=== PATIENT | female | born 1945 | race Caucasian/White ===

== ENCOUNTER → 2025-04-29 | Outpatient (CLI) | payer OTHER, SELFPAY ==
[2025-04-29 12:12] LABS: Hematocrit 40.1 % (37-47); Hemoglobin 13.6 g/dL (12.0-15.0); Mean Corp Hgb Conc 33.9 g/dL (32-36); Mean Corpuscular Volume 89.9 fL (81-99); Mean Platelet Vol. 11.1 fl (6.2-12.0); Platelet Count 193 K/mm3 (150-450); RBC Distribution Width CV 13.1 % (11.6-14.6); RBC Distribution Width SD 42.9 fl (35.1-43.9); Red Blood Count 4.46 M/mm3 (4.2-5.4); White Blood Count 5.4 K/mm3 (4.4-11.0)
[2025-04-29 12:57] LABS: AST(SGOT) 26 U/L (<=31); Alanine Aminotransfer ALT/SGPT 16 U/L (<=34); Albumin, Serum 4.5 g/dL (3.4-4.8); Alkaline Phosphatase 50 U/L (35-104); BUN 13 mg/dL (4-19); BUN/Creat Ratio 16.8 RATIO (10-20); Calcium,Total 9.7 mg/dL (7.6-11.0); Chloride 104 mmol/L (98-108); Globulin 2.7 g/dL (2.2-4.2); Glucose 94 mg/dL (70-99); Potassium 4.1 mmol/L (3.3-5.1)
[2025-04-29 12:58] LABS: Anion Gap 10 (5-15); Carbon Dioxide 26.4 mmol/L (21.0-32.0)
== END | disposition home or self-care (01) ==
LOC: LAB 11:18
PROVIDERS: PCP Family Medicine; Referring Provider Internal Medicine Cardiovascular Disease; Visit Provider Internal Medicine Cardiovascular Disease
DX: I10 Essential (primary) hypertension (principal); I20.9 Angina pectoris, unspecified; I77.9 Disorder of arteries and arterioles, unspecified; E78.5 Hyperlipidemia, unspecified; R53.83 Other fatigue
CPT/HCPCS: 36415; 80053; 84443; 85027

== ENCOUNTER → 2025-05-21 | Outpatient (CLI) | payer SELFPAY, OTHER ==
--- NOTE | 2025-05-21 07:23 | CDU_ITS ---
Reason For Study Reason For Study: Lightheadeness Rt. Velocities/BP Lt. Velocities/BP Prox CCA 83.9/12.4 cm/sec. Prox CCA 86.1/17.9 cm/sec. Mid CCA 75.9/17.3 cm/sec. Mid CCA 89.4/25.6 cm/sec. Dist CCA 76.8/18.2 cm/sec. Dist CCA 67.4/20.1 cm/sec. Prox ICA 86.3/20.4 cm/sec. Prox ICA 69.6/22.3 cm/sec. Mid ICA 91.2/24.9 cm/sec. Mid ICA 81.7/26.7 cm/sec. Dist ICA 79/22.5 cm/sec. Dist ICA 112/37.1 cm/sec. Rt. ICA/CCA = 1.20. Lt. ICA/CCA = 1.25. Prox ECA 259.6/17.1 cm/sec. Prox ECA 61.9/6.9 cm/sec. Rt. Vert. 25.1/9.5 cm/sec. Lt. Vert. 54.4/13.9 cm/sec. Right Extracranial There is intimal thickening but no significant atherosclerotic plaque noted in the right common carotid artery. There is heterogeneous, irregular atherosclerotic plaque noted in the right internal carotid artery. There is heterogeneous, irregular atherosclerotic plaque noted in the right external carotid artery. Antegrade flow is noted in the right vertebral artery. Left Extracranial There is intimal thickening but no significant atherosclerotic plaque noted in the left common carotid artery. There is intimal thickening but no significant atherosclerotic plaque noted in the left internal carotid artery. There is heterogeneous, irregular atherosclerotic plaque noted in the left external carotid artery. Antegrade flow is noted in the left vertebral artery. Procedure Carotid Duplex [id number]. This is a Carotid Duplex examination using B-mode, color flow and specral Doppler. Exam performed in department. VL/Carotid Duplex Ultrasound Interpretation Summary Mild (<50%) stenosis right extracranial internal carotid. Normal left extracranial internal carotid. Patent and antegrade vertebrals bilaterally. Ordering Physician: Nubia Christianson Referring Physician: Isaac Henderson Performed By: Marisa Kan RVT
--- NOTE | 2025-05-21 07:23 | ECHOD_ITS ---
Reason For Study Reason For Study: LIGHTHEADED, NEAR SYNCOPE Procedure This was a 2D Doppler, Color Flow transthoracic echocardiogram. Exam performed in department. Left Ventricle Normal size and thickness. The left ventricular ejection fraction is 65 %. Diastolic function is indeterminate. Right Ventricle Normal right ventricle. Atria The left and right atria are normal. Mitral Valve Mildly thickened anterior leaflet of the mitral valve with mild prolapse. Mild posteriorly directed mitral valve regurgitation. Tricuspid Valve Moderate (2+) tricuspid valve insufficiency. Right ventricular systolic pressure estimated to be 47 mmHg. Aortic Valve Mild calcific aortic valve stenosis. Mean peak gradient 8 mmHg. Pulmonic Valve The pulmonic valve is not well visualized. Great Vessels Normal sized aortic root. Pericardium/Pleural No pericardial effusion. MMode/2D Measurements & Calculations LVIDd: 4.2 cm IVSd: 0.86 cm LVOT diam: 2.1 cm LVIDs: 2.5 cm LVPWd: 0.84 cm LVOT area: 3.6 cm2 RVDd: 3.7 cm FS: 41.3 % asc Aorta Diam: 3.2 cm LAV(MOD-bp): 50.5 ml LVAd ap4: 25.1 cm2 LAV(MOD-bp) Indexed: 32.3 ml/m2 LVLd ap4: 7.1 cm LAV(MOD-sp2): 43.5 ml EDV(MOD-sp4): 71.6 ml LAV(MOD-sp4): 59.7 ml EDV(sp4-el): 74.7 ml LVAs ap4: 12.7 cm2 LVLs ap4: 5.8 cm ESV(MOD-sp4): 23.1 ml ESV(sp4-el): 23.8 ml EF(MOD-sp4): 67.8 % EF(sp4-el): 68.1 % LVAd ap2: 25.8 cm2 SV(MOD-sp4): 48.5 ml LVLd ap2: 7.2 cm EDV(MOD-bp): 74.0 ml SI(MOD-sp4): 31.0 ml/m2 EDV(MOD-sp2): 73.8 ml ESV(MOD-bp): 22.8 ml EDV(sp2-el): 78.2 ml EF(MOD-bp): 69.2 % LVAs ap2: 12.9 cm2 LVLs ap2: 6.1 cm ESV(MOD-sp2): 22.1 ml ESV(sp2-el): 23.2 ml EF(MOD-sp2): 70.0 % SV(MOD-sp2): 51.7 ml SV(sp4-el): 50.9 ml LA A4 area: 20.7 cm2 SI(MOD-sp2): 33.0 ml/m2 LA dimension(2D): 2.8 cm RA A4 area: 18.7 cm2 TAPSE: 2.6 cm Time Measurements MV dec time: 0.30 sec Doppler Measurements & Calculations MV E max tylor: 71.6 cm/sec Lat Peak E' Tylor: 6.8 cm/sec Med Peak E' Tylor: 6.9 cm/sec MV A max tylor: 64.8 cm/sec E/E' lat: 10.6 E/E' med: 10.4 MV E/A: 1.1 Ao V2 max: 188.9 cm/sec LV V1 max: 99.7 cm/sec MV dec slope: 237.8 cm/sec2 Ao max P.3 mmHg LV V1 max P.0 mmHg Ao V2 mean: 131.3 cm/sec LV V1 mean P.0 mmHg Ao mean P.8 mmHg LV V1 mean: 65.8 cm/sec Ao V2 VTI: 41.3 cm LV V1 VTI: 25.8 cm AV (velocity ratio): 0.62 RICH(I,D): 2.2 cm2 RICH(V,D): 1.9 cm2 SV(LVOT): 92.0 ml PA V2 max: 87.9 cm/sec TR max tylor: 281.8 cm/sec TR max P.8 mmHg ECHO/Echo Complete Interpretation Summary The left ventricular ejection fraction is 65 %. Diastolic function is indeterminate. Mildly thickened anterior leaflet of the mitral valve with mild prolapse. Mild posteriorly directed mitral valve regurgitation. Moderate (2+) tricuspid valve insufficiency. Right ventricular systolic pressure estimated to be 47 mmHg. Mild calcific aortic valve stenosis. Mean peak gradient 8 mmHg. Ordering Physician: Nubia Christianson Referring Physician: Isaac Henderson Performed By: Gaetano Bliss RDCS
--- OUTSIDE RECORDS SUMMARY | 2025-05-21 07:31 | XMS RPT_ITS | CCD ---
Author Organization [facility] Care Team Providers Care Caddy Master Name Role Phone ANNIE DORADO Consulting Unavailable ANNIE DORADO Referring Unavailable MAGGY SHARMA MD Admitting Unavailable MAGGY SHARMA MD Attending Unavailable MAGGY SHARMA MD Primary Care Unavailable PROVIDER, UNKNOWN Consulting Unavailable PROVIDER, UNKNOWN Consulting Unavailable PROVIDER, UNKNOWN Consulting Unavailable ANNIE DORADO MD Unavailable [phone] HEATHER KYLE MD Unavailable BRIDGER DORADO MD Unavailable Millie Greer RN Unavailable Unavailable [place] HORNE MD Unavailable [phone] Ekta KYLE MD Unavailable FRANCHESKA CASTRO Unavailable Unavailable Fawn Funes Unavailable Unavailable Andrew RODRIGUEZ, Nae Unavailable Unavaila ble Unavailable Unavailable SAROJ CLIENT SOLUTIONS MANAGER-BCMIGUEL Unavailable [phone] ELIEZER RODRIGUEZ Unavailable Allergies Allergy Classification Reported Allergen(s) Allergy Type Date of Onset Reaction(s) Facility (1 source) predniSONE Drug Allergy [facility] (18 sources) atorvastatin Drug Allergy 11-27-2022 [facility], [facility].; [facility] (18 sources) predniSONE Drug Allergy [facility], [facility].; [facility], [facility]. Medications Current Medications Medication Drug Class(es) Dates Sig (Normalized) Sig (Original) aspirin 81 mg delayed release oral tablet (18 sources) Platelet Aggregation Inhibitor, Nonsteroidal Anti-inflammatory Drug take 1 tablet by mouth once daily Aspirin 81 81 MG Oral Tablet Delayed Release ; 1 daily (81 MG) Comments: OTC Comment on above: OTC docusate sodium 50 mg / sennosides, senior living 8.6 mg oral tablet (18 sources) Senna-S 8.6 mg-5 0 mg tablet ; 4 two times daily as needed (8.6-50 mg) Comments: Medication taken as needed. OTC Senna-S 8.6 mg-5 0 mg tablet ; 4 two times daily (8.6-50 mg) Comments: as needed Comment on above: as needed Medication taken as needed. OTC latanoprost 0.05 mg/ml ophthalmic solution (18 sources) Prostaglandin Analog take 1 drop(s) into the eye(s) at bedtime Latanoprost 0.005 % Ophthalmic Solution ; 1 drop at bedtime (0.005 %) Comments: [facility] Comment on above: [facility] sennosides, senior living 1.76 mg/ml oral solution (12 sources) Start: take 5 mL by mouth once daily senna 8.8 mg/5 mL oral syrup ; 5 Milliliter daily for 90 days Quantity: 360 {Milliliter} Refills: 1 Ordered: 31-Mar-2025 MD ANNIE DORADO Start: 31-Mar-2025 Comments: OTC Start: 04-03-2024 End: 09-18-2024 take 5 mL by mouth once daily senna 8.8 mg/5 mL oral s yrup ; 5 Milliliter daily for 90 days Quantity: 360 {Milliliter} Refills: 1 Ordered: 09-Feb-2025 MICHAEL Morales Start: 03-Apr-2024 Comments: OTC Start: 01-28-2024 take 5 mL by mouth once daily senna 8.8 mg/5 mL oral syrup ; 5 Milliliter daily for 90 days Quantity: 360 {Milliliter} Refills: 1 Ordered: 28-Jan-2024 MD ANNIE DORADO Start: 28-Jan-2024 Comment on above: OTC traZODone hydrochloride 50 mg oral tablet (10 sources) Serotonin Reuptake Inhibitor Start: 09-18-2024 traZODone 50 mg tablet ; 1 (one) tablet qHS for 0 days Quantity: 30 {Tablet} Refills: 5 Ordered: 09-Feb-2025 MICHAEL Morales Start: 18-Sep-2024 Completed/Discontinued Medications Medication Drug Class(es) Dates Sig (Normalized) Sig (Original) atorvastatin 20 mg oral tablet (18 sources) HMG-CoA Reductase Inhibitor take 1 tablet by mouth at bedtime Atorvastatin Calcium 20 MG Oral Tablet ; 1 at bedtime (20 MG) Status: Inactive cephalexin 500 mg oral capsule (18 sources) Cephalosporin Antibacterial Start: 11-21-2023 End: 12-05-2023 cephALEXin 500 mg capsule ; 1 (one) Capsule tid for 14 days Quantity: 40 {Capsule} Refills: 0 Ordered: 11-Dec-2023 MD Florida HORNE Start: 21-Nov-2023 End: 05-Dec-2023 Status: Inactive Comments: medication to be dispensed in office Comment on above: medication to be dis pensed in office doxycycline hyclate 100 mg oral capsule (13 sources) Tetracycline-class Drug Start: 12-12-2023 End: 12-26-2023 doxycycline hyclate 100 mg capsule ; 1 (one) Capsule two times daily with meals for 14 days Quantity: 28 {Capsule} Refills: 0 Ordered: 05-Jan-2024 BIBI KYLE Start: 12-Dec-2023 End: 26-Dec-2023 Status: Inactive fluconazole 100 mg oral tablet (18 sources) Azole Antifungal Start: 07-26-2021 End: 08-02-2021 take 1 tablet by mouth once daily Diflucan 100 MG Oral Tablet ; 1 (one) Tablet daily for 7 days Quantity: 7 {Tablet} Refills: 0 Ordered: 26-Jul-2021 MD ANNIE DORADO Start: 26-Jul-2021 End: 02-Aug-2021 Status: Inactive nystatin 235645 unt/ml topical cream (18 sources) Polyene Antifungal Start: 07-18-2021 End: 12-12-2023 nystatin 100,000 unit/gram topical cream ; 1 (one) application three times daily for 0 days Quantity: 1 {Each} Refills: 0 Ordered: 12-Dec-2023 MICHAEL Greer Start: 18-Jul-2021 End: 12-Dec-2023 Status: Inactive Comments: medication to be dispensed in office Comment on above: medication to be dis pensed in office oseltamivir 75 mg oral capsule (18 sources) Neuraminidase Inhibitor Start: 08-09-2018 End: 08-19-2018 take 1 capsule by mouth once daily Tamiflu 75 MG Oral Capsule ; 1 (one) Capsule daily for 10 days Quantity: 10 {Capsule} Refills: 0 Ordered: 14-Aug-2019 MD Ekta KYLE Start: 09-Aug-2018 End: 19-Aug-2018 Status: Inactive Comments: Premier Comment on above: Premier silver sulfADIAZINE 10 mg/ml topical cream (18 sources) Sulfonamide Antibacterial Start: 11-21-2023 End: 09-18-2024 silver sulfadiazine 1 % topical cream ; 1 (one) application bid for 30 days Quantity: 85 {Gram} Refills: 3 Ordered: 18-Sep-2024 MICHAEL Morales Start: 21-Nov-2023 End: 18-Sep-2024 Status: Inactive triamcinolone acetonide 1 mg/ml topical cream (6 sources) Corticosteroid Start: 02-09-2025 End: 02-16-2025 triamcinolone acetonide 0.1 % topical cream ; 1 (one) Cream three times daily for 7 days Quantity: 1 {Each} Refills: 0 Ordered: 16-Feb-2025 MD ANNIE DORADO Start: 09-Feb-2025 End: 16-Feb-2025 Status: Inactive Problems Active Problems Problem Classification Problem Date Documented Da te Episodic/Chronic Acute cerebrovascular disease (3 sources) Cerebral infarction, unspecified; Translations: [Cerebral infarction, unspecified] Onset: 08-13-2019 Chronic Cataract (20 sources) Bilateral cataracts; Translations: [Unspecified cataract] 05-15-2016 Chronic Disorders of lipid metabolism (20 sources) Hypercholesterolemia; Translations: [Pure hypercholesterolemia, unspecified] 09-08-2020 Chronic Comment on above: JTK=101 (09/07/20) on natural meds is much improved from previous. She does not want further meds. Glaucoma (20 sources) Unspecified glaucoma 05-15-2016 Chronic Hemorrhoids (20 sources) External hemorrhoids; Translations: [Residual hemorrhoidal skin tags] 07-18-2021 Episodic Immunizations and screening for infectious disease (18 sources) Contact with and (suspected) exposure to other viral communicable diseases; Translations: [Contact with or exposure to other viral diseases] 08-09-2018 Episodic Malaise and fatigue (20 sources) Asthenia; Translations: [Weakness] 11-27-2022 Episodic Mycoses (20 sources) Candidiasis of skin; Translations: [Candidiasis of skin and nail] 07-18-2021 Episodic Comment on above: perianal Other aftercare (18 sources) Post-discharge follow-up; Translations: [Encounter for follow-up examination after completed treatment for conditions other than malignant neoplasm] 08-18-2019 Episodic Other circulatory disease (20 sources) History of cerebrovascular accident; Translations: [Personal history of transient ischemic attack (TIA), and cerebral infarction without residual deficits] 09-07-2020 Episodic Comment on above: right middle cerebra l artery. Other gastrointestinal disorders (20 sources) Constipation; Translations: [Constipation, unspecified] 11-27-2022 Episodic Other inflammatory condition of skin (12 sources) Pruritus ani; Translations: [Pruritus ani] 02-09-2025 Episodic Residual codes; unclassified (20 sources) Insomnia; Translations: [Insomnia, unspecified] 09-18-2024 Episodic Skin and subcutaneous tissue infections (20 sources) Cellulitis of right ankle; Translations: [Cellulitis of right lower limb] 11-21-2023 Episodic Varicose veins of lower extremity (20 sources) Ankle ulcer; Translations: [Varicose veins of unspecified lower extremity with ulcer of ankle] 11-21-2023 Episodic Past or Other Problems Problem Classification Problem Date Documented Da te Episodic/Chronic Cataract (18 sources) Cataract 05-15-2016 Gastrointestinal hemorrhage (6 sources) Gastrointestinal hemorrhage 02-09-2025 Unclassified (18 sources) Leg pain - The leg pain has been occurring for 4 weeks. The leg pain is described as a burning sensation. The leg pain involves both legs (The right legs has a open sore, left leg varicose veins and painful.). The leg pain is described as being located in the ankle. There has been associated difficulty arising from a chair, difficulty donning shoes and socks, stiffness, swelling in the leg and weakness, while there has been no decreased range of motion. Note for Leg pain: It started in 2000 and R foot was healed, and 4 weeks ago has a open sore and draining, swollen, red. And left leg has varicose veins and bottom of L foot painful 11-21-2023 Unclassified (18 sources) !Patient notification of lab results - Dr. Dorado. The test(s) that you had done were/was blood work (Your blood count, iron, cholesterol, electrolytes, sugar, liver, kidneys and thyroid look ok. Please keep your appointment with Dr. Heather Kyle - let us know if you do not hear from his office.). You should call our office if you have any questions. 11-30-2022 Unclassified (13 sources) Weakness - The weakness has been occurring for 2 months. Note for Weakness: Pt offers hx of having a weakness in the morning. 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 Onset was 1 week(s) ago. Onset followed constipation (has trouble with constipation at times.). Current treatment includes topical hemorrhoid creams and laxatives. 07-18-2021 Unclassified (18 sources) !Patient notification of lab results - Dr. Kyle. Note for !Patient notification of lab results : Alice, your cholesterol looks quite a bit better than it did in the past. However, it is still not where we like to see it for someone who has a history of stroke. Generally, we would recommend that you give a different cholesterol pill a try. However, with it looking some better it would also be reasonable to just continue with your natural med and diet if that is what you would prefer.Let us know if you do want to start meds and we can call that in for you. 09-08-2020 Unclassified (18 sources) Cerebrovascular Accident - Note for Cerebrovascular accident: Residual left arm and leg weakness, slight numbness left arm intermittant.Occasional lt shoulder/arm discomfort w/ working, no SOB. States some CP, releived w/ rest. 09-07-2020 Unclassified (4 sources) Transition into care - The patient is transitioning into care from a hospital ([facility]) and a summary of care was reviewed (See Electronic Notes). 08-18-2019 Unclassified (4 sources) [ADDITIONAL REASON] Cerebrovascular Accident - Note for Cerebrovascular accident: Had CVA on 08/13/2019. Was admitted to [facility]. Has left-basim weakness. Is having Phy. Therapy at home 08-18-2019 Unclassified (14 sources) Cerebrovascular Accident - Note for Cerebrovascular accident: Had CVA on 08/13/2019. Was admitted to [facility]. Has left-basim weakness. Is having Phy. Therapy at home 08-18-2019 Unclassified (14 sources) [ADDITIONAL REASON] Transition into care - The patient is transitioning into care from a hospital ([facility]) and a summary of care was reviewed (See Electronic Notes). 08-18-2019 Unclassified (14 sources) Cellulitis - The last clinic visit was 1 month(s) ago. Symptoms include pain, swelling and drainage. Symptoms are located on the right foot (around ankle). Note for Cellulitis: Was here in November and was put on Antibiotics. Seemed to get better - now more painful and red 12-12-2023 Unclassified (5 sources) Constipation - Note for Constipation: jail 11-27-2022 Unclassified (5 sources) [ADDITIONAL REASON] Weakness - The weakness has been occurring for 2 months. Note for Weakness: Pt offers hx of having a weakness in the morning. 11-27-2022 Unclassified (10 sources) Fatigue - Symptoms include fatigue and weakness. Onset was week(s) ago. Note for Fatigue: c/o chest pain and shortness of breath at times. Appetite good but doesn't sleep the best at times. 09-18-2024 Unclassified (8 sources) !Patient notification of lab results - Dr. Dorado. The test(s) that you had done were/was an iron level, a CBC (checks for anemia and infection), a CMP (kidneys, liver, nutrition, sugar), a TSH (thyroid) and Vitamin D level (Vitamin D level is slightly low, but otherwise your labs are all normal). You should call our office if you have any questions. 09-22-2024 Results Test Name Value Interpretation Reference Range Facility Laboratory - Chemistry and C hemistry - challengeon 09-18-2024 25-hydroxyvitamin D [Mass/Vol] 28.7 ng/mL Abnormal 30.0 - 100.0 ng/mL [facility]; [facility] Work Phone: Albumin [Mass/Vol] 4.2 g/dL Normal 3.8 - 4.8 g/dL [facility]; [facility] [employer] [facility] Work Phone: ALP [Catalytic activity/Vol] 59 U/L Normal 44 - 121 [iU]/L [facility]; [facility]. Work Phone: ALT [Catalytic activity/Vol] 17 U/L Normal 0 - 32 [iU]/L [facility]; [facility] Work Phone: AST [Catalytic activity/Vol] 25 U/L Normal 0 - 40 [iU]/L [facility]; [facility] Work Phone: Bilirubin [Mass/Vol] 0.3 mg/dL Normal 0.0 - 1 .2 mg/dL [facility]; [facility] Work Phone: Calcium [Mass/Vol] 9.9 mg/dL Normal 8.7 - 10. 3 mg/dL [facility]; [facility] Work Phone: Chloride [Moles/Vol] 103 mmol/L Normal 96 - 10 6 mmol/L [facility]; [facility] Work Phone: CO2 [Moles/Vol] 23 mmol/L Normal 20 - 29 mmol/L [facility]; [facility] Work Phone: Creatinine [Mass/Vol] 0.82 mg/dL Normal 0.57 - 1.00 mg/dL [facility]; [facility] Work Phone: GFR/1.73 sq M.predicted among non-blacks MDRD (S/P/Bld) [Vol rate/Area] 72 mL/min/{1.73_m2} Normal [facility]; [facility] Work Phone: Globulin (S) [Mass/Vol] 2.2 g/dL Normal 1.5 - 4.5 g/dL [facility]; [facility] Work Phone: Glucose [Mass/Vol] 86 mg/dL Normal 70 - 99 mg/dL [facility]; [facility] Work Phone: Iron [Mass/Vol] 64 ug/dL Normal 27 - 139 ug/dL [facility]; [facility] Work Phone: Potassium [Moles/Vol] 4.5 mmol/L Normal 3.5 - 5.2 mmol/L [facility]; [facility] Work Phone: Protein [Mass/Vol] 6.4 g/dL Normal 6.0 - 8.5 g/dL [facility]; [facility] Work Phone: Sodium [Moles/Vol] 141 mmol/L Normal 134 - 144 mmol/L [facility]; [facility] Work Phone: TSH Qn 1.460 {uIU/mL} Normal 0.450 - 4.500 {uIU/mL} [facility]; [facility] Work Phone: Urea nitrogen [Mass/Vol] 17 mg/dL Normal 8 - 27 mg/dL [facility]; [facility] Work Phone: Urea nitrogen/Creatinine [Mass ratio] 21 mg/mg Normal 12 - 28 [facility]; [facility] Work Phone: Laboratory - Hematology and Cell countson 09-18-2024 Basophils (Bld) [#/Vol] 0.0 10*3/uL Normal 0.0 - 0.2 {x10E3/uL} [facility], [facility]. Work Phone: Basophils/100 WBC (Bld) 1 % Normal [facility]; [facility] Work Phone: Eosinophils (Bld) [#/Vol] 0.2 10*3/uL Normal 0.0 - 0.4 {x10E3/uL} [facility]; [facility]. Work Phone: Eosinophils/100 WBC (Bld) 4 % Normal [facility]; [facility] Work Phone: Erythrocyte distribution width (RBC) [Ratio] 12.9 % Normal 11.7 - 15.4 % [facility]; [facility], [facility]. Work Phone: Hematocrit (Bld) [Volume fraction] 37.5 % Normal 34.0 - 46.6 % [facility]; [facility], [facility]. Work Phone: Hemoglobin (Bld) [Mass/Vol] 12.1 g/dL Normal 11.1 - 15.9 g/dL [facility]; [facility], [facility]. Work Phone: Immature granulocytes (Bld) [#/Vol] 0.0 10*3/uL Normal 0.0 - 0.1 {x10E3/uL} [facility].; [facility], [facility]. Work Phone: Immature granulocytes/100 WBC (Bld) 0 % Normal [facility]; [facility], [facility]. Work Phone: Lymphocytes (Bld) [#/Vol] 1.1 10*3/uL Normal 0.7 - 3.1 {x10E3/uL} [facility]; [facility]. Work Phone: Lymphocytes/100 WBC (Bld) 19 % Normal [facility]; [facility] Work Phone: MCH (RBC) [Entitic mass] 28.9 pg Normal 26.6 - 33.[address] [facility]; [facility]. Work Phone: MCHC (RBC) [Mass/Vol] 32.3 g/dL Normal 31.5 - 35.7 g/dL [facility]; [facility], [facility]. Work Phone: MCV (RBC) [Entitic vol] 90 fL Normal 79 - [address] [facility]; [facility] Work Phone: Monocytes (Bld) [#/Vol] 0.4 10*3/uL Normal 0.1 - 0.9 {x10E3/uL} [facility].; [facility], [facility]. Work Phone: Monocytes/100 WBC (Bld) 7 % Normal [facility]; [facility], [facility]. Work Phone: Neutrophils (Bld) [#/Vol] 4.0 10*3/uL Normal 1.4 - 7.0 {x10E3/uL} [facility]; [facility], [facility]. Work Phone: Neutrophils/100 WBC (Bld) 69 % Normal [facility]; [facility], [facility]. Work Phone: Platelets (Bld) [#/Vol] 223 10*3/uL Normal 150 - 450 {x10E3/uL} [facility].; [facility], [facility]. Work Phone: RBC (Bld) [#/Vol] 4.19 10*6/uL Normal 3.77 - 5.2 8 {x10E6/uL} [facility].; [facility]. Work Phone: WBC (Bld) [#/Vol] 5.7 10*3/uL Normal 3.4 - 10.8 {x10E3/uL} [facility].; [facility], [facility] Work Phone: Laboratory - Chemistry and C hemistry - challengeon 11-27-2022 Albumin BCP dye [Mass/Vol] 4.0 g/dL Normal 3.2 - 4.8 g/dL [facility]; [facility], [facility] Albumin/Globulin [Mass ratio] 1.5 {ratio} Normal 0.9 - 1.6 {ratio} [facility], [facility]. ALP [Catalytic activity/Vol] 45 U/L Normal 38 - 126 U/L [facility].; [facility], [facility]. ALT No additional P-5'-P [Catalytic activity/Vol] 19 U/L Normal 10 - 49 U/L [facility]; [facility], [facility]. ALT With P-5'-P [Catalytic activity/Vol] 19 U/L Normal 10 - 49 U/L [facility].; [facility], [facility]. AST [Catalytic activity/Vol] 23 U/L Normal 8 - 34 U/L [facility].; [facility], [facility]. AST With P-5'-P [Catalytic activity/Vol] 23 U/L Normal 8 - 34 U/L [facility].; [facility], [facility]. Bilirubin [Mass/Vol] 0.40 mg/dL Normal 0.20 - 1.20 mg/dL [facility].; [facility], [facility] Calcium [Mass/Vol] 9.7 mg/dL Normal 8.7 - 10. 4 mg/dL [facility].; [facility], [facility]. Carcinoembryonic Ag [Mass/Vol] 1.9 ng/mL Normal 0.0 - 3.0 ng/mL [facility]; [facility] Chloride [Moles/Vol] 107 mmol/L Normal 98 - 110 meq/L [facility].; [facility] Cholesterol [Mass/Vol] 238 mg/dL Abnormal 50 - 199 mg/d L [facility].; [facility]. Cholesterol in HDL [Mass/Vol] 64 mg/dL Abnormal 40 - 59 mg/dL [facility]; [facility]. Cholesterol in LDL [Mass/Vol] 148 mg/dL Abnormal 0 - 129 mg/dL [facility].; [facility], [facility] CO2 [Moles/Vol] 27 mmol/L Normal 22 - 32 meq/L [facility], [facility] Creatinine [Mass/Vol] 0.60 mg/dL Normal 0.50 - 1.20 mg/dL [facility].; [facility], [facility]. GFR/1.73 sq M.predicted among blacks MDRD (S/P/Bld) [Vol rate/Area] mL/min/{1.73_m2} Normal [facility]; [facility], [facility]. Work Phone: GFR/1.73 sq M.predicted among non-blacks MDRD (S/P/Bld) [Vol rate/Area] mL/min/{1.73_m2} Normal [facility].; [facility], [facility] Work Phone: Globulin (S) [Mass/Vol] 2.6 g/dL Normal 1.5 - 3.8 g/dL [facility].; [facility], [facility] Glucose [Mass/Vol] 92 mg/dL Normal 82 - 115 mg/dL [facility]; [facility] Iron [Mass/Vol] 67 ug/dL Normal 50 - 170 ug/dL [facility]; [facility] Potassium [Moles/Vol] 4.0 mmol/L Normal 3.5 - 5.0 meq/L [facility]; [facility] Protein [Mass/Vol] 6.6 g/dL Normal 5.7 - 8.2 g/dL [facility]; [facility] Sodium [Moles/Vol] 141 mmol/L Normal 136 - 145 meq/L [facility]; [facility] Triglyceride [Mass/Vol] 129 mg/dL Normal 3 - 149 mg/dL [facility]; [facility] [facility] TSH Qn 1.125 m[IU]/L Normal 0.550 - 4.780 m[iU]/mL [facility]; [facility] Urea nitrogen [Mass/Vol] 19.0 mg/dL Normal 8.0 - 22.0 mg/dL [facility]; [facility] Urea nitrogen/Creatinine [Mass ratio] 31.7 {ratio} Abnormal 10.0 - 22.0 {ratio} [facility]; [facility] Laboratory - Hematology and Cell countson 11-27-2022 Basophils (Bld) [#/Vol] 0.0 {10^3/mcL} Normal 0.0 - 0.3 {10^3/mcL} [facility]; [facility] Work Phone: Basophils/100 WBC (Bld) 0.9 % Normal 0.0 - 2.5 % [facility]; [facility] Work Phone: Eosinophils (Bld) [#/Vol] 0.1 {10^3/mcL} Normal 0.0 - 0.7 {10^3/mcL} [facility].; [facility] Work Phone: Eosinophils/100 WBC (Bld) 2.9 % Normal 0.0 - 6.0 % [facility].; [facility] Work Phone: Erythrocyte distribution width (RBC) [Ratio] 13.6 % Normal 11.5 - 15.5 % [facility]; [facility], [facility] Hematocrit (Bld) [Volume fraction] 38.8 % Normal 34.0 - 46.0 % [facility]; [facility] Hemoglobin (Bld) [Mass/Vol] 12.8 g/dL Normal 12.0 - 16.0 g/dL [facility].; [facility], [facility] Lymphocytes (Bld) [#/Vol] 1.1 {10^3/mcL} Normal 0.9 - 4.3 {10^3/mcL} [facility].; [facility], [facility] Work Phone: Lymphocytes/100 WBC (Bld) 21.5 % Normal 20.0 - 40.0 % [facility]; [facility], [facility] Work Phone: MCH (RBC) [Entitic mass] 29.6 pg Normal 27.0 - 33.[address] [facility]; [facility], [facility]. MCHC (RBC) [Mass/Vol] 33.1 g/dL Normal 32.0 - 36.0 g/dL [facility].; [facility], [facility]. MCV (RBC) [Entitic vol] 89.7 fL Normal 80.0 - 99.[address] [facility]; [facility], [facility] Monocytes (Bld) [#/Vol] 0.4 {10^3/mcL} Normal 0.1 - 1.4 {10^3/mcL} [facility] [facility], [facility]. Work Phone: Monocytes/100 WBC (Bld) 6.9 % Normal 2.0 - 13.0 % [facility], [facility]. Work Phone: Neutrophils (Bld) [#/Vol] 3.5 {10^3/mcL} Normal 2.3 - 8.1 {10^3/mcL} [facility] Work Phone: Neutrophils/100 WBC (Bld) 67.8 % Normal 50.0 - 75.0 % [facility] Work Phone: Platelet mean volume (Bld) [Entitic vol] 9.9 fL Normal 6.6 - 10.5 fL [facility]. Platelets (Bld) [#/Vol] 190 {10^3/mcL} Normal 150 - 450 {10^3/mcL} [facility] RBC (Bld) [#/Vol] 4.32 {10^6/mcL} Normal 4.10 - 5.30 {10^6/mcL} [facility]. WBC (Bld) [#/Vol] 5.1 {10^3/mcL} Normal 4.5 - 10 .8 {10^3/mcL} [facility] No Panel Informationon 11-27 Basophil, Absolute 0.0 {10^3/mcL} Normal 0.0 - 0 .3 {10^3/mcL} [facility] [facility] Work Phone: Electrolyte Balance 7.0 meq/L Normal 4.0 - 15 .0 meq/L [facility].; [facility], [facility]. Eosinophil, Absolute 0.1 {10^3/mcL} Normal 0.0 - 0.7 {10^3/mcL} [facility].; [facility], [facility] Work Phone: Lymphocyte, Absolute 1.1 {10^3/mcL} Normal 0.9 - 4.3 {10^3/mcL} [facility].; [facility], [facility]. Work Phone: Monocyte, Absolute 0.4 {10^3/mcL} Normal 0.1 - 1 .4 {10^3/mcL} [facility].; [facility], [facility]. Work Phone: Neutrophil, Absolute 3.5 {10^3/mcL} Normal 2.3 - 8.1 {10^3/mcL} [facility]; [facility], [facility]. Work Phone: Laboratory - Chemistry and C hemistry - challengeon 09-07-2020 Calcium [Mass/Vol] 10.2 mg/dL Normal 8.7 - 10. 4 mg/dL [facility]; [facility], [facility] Chloride [Moles/Vol] 105 mmol/L Normal 98 - 110 meq/L [facility]; [facility] Cholesterol [Mass/Vol] 243 mg/dL Abnormal 50 - 199 mg/d L [facility]; [facility], [facility]. Cholesterol in HDL [Mass/Vol] 61 mg/dL Abnormal 40 - 59 mg/dL [facility]; [facility]. Cholesterol in LDL [Mass/Vol] 155 mg/dL Abnormal 0 - 129 mg/dL [facility].; [facility], [facility]. CO2 [Moles/Vol] 30 mmol/L Normal 22 - 32 meq/L [facility]. Creatinine [Mass/Vol] 0.77 mg/dL Normal 0.50 - 1.20 mg/dL [facility]; [facility] GFR/1.73 sq M.predicted among blacks MDRD (S/P/Bld) [Vol rate/Area] mL/min/{1.73_m2} Normal [facility].; [facility] Work Phone: GFR/1.73 sq M.predicted among non-blacks MDRD (S/P/Bld) [Vol rate/Area] mL/min/{1.73_m2} Normal [facility].; [facility] Work Phone: Glucose [Mass/Vol] 90 mg/dL Normal 82 - 115 mg/dL [facility]; [facility] Potassium [Moles/Vol] 4.2 mmol/L Normal 3.5 - 5.0 meq/L [facility]; [facility] Sodium [Moles/Vol] 141 mmol/L Normal 136 - 145 meq/L [facility]; [facility] Triglyceride [Mass/Vol] 134 mg/dL Normal 3 - 149 mg/dL [facility]; [facility], [facility] Urea nitrogen [Mass/Vol] 17.0 mg/dL Normal 8.0 - 22.0 mg/dL [facility]; [facility], [facility] Urea nitrogen/Creatinine [Mass ratio] 22.1 {ratio} Abnormal 10.0 - 22.0 {ratio} [facility]; [facility], [facility] No Panel Informationon 09-07 Electrolyte Balance 6.0 meq/L Normal 4.0 - 15 .0 meq/L [facility]; [facility], [facility] EMERGENCY REPORTon EMERGENCY REPORT [facility] EMERGENCY ROOM REPORT NAME ACCOUNT SEX AGE ADMIT DISCHARGE PT MED. RECORD# NUMBER DATE DATE TYPE ALICE KYLE [id number] F 74 08/13/19 3 [id number] ROOM: ER DATE OF : 1945 DICTATING PHYSICIAN: Sofía Elizabeth CHIEF COMPLAINT: Left-sided numbness and weakness. HISTORY OF PRESENT ILLNESS: The patient is a 74-year-old female who woke up this morning and got breakfast, and at about 7 a.m. started feeling numbness, tingling, and weakness in the left leg. Family convinced her to prop her leg up and rest. She slept until about noon. When she woke up, she was having trouble walking, and now it was the whole left side of her body, and she again waited to come in until 5:45 because she thought it would go away, but when she tried to walk she had no strength in the left leg and she has sensation deficits in the left arm and left leg. No headache. No blurred vision. No double vision. No history of atrial fibrillation. She is not on blood thinners. She has no history of CVA, TIA, or trauma. No chest pain, shortness of breath, nausea, vomiting, fever, chills, or change in appetite. PAST MEDICAL HISTORY: She denies being on anything but herbals. PAST SURGICAL HISTORY: See nursing notes. MEDICATIONS: Herbals. REVIEW OF SYSTEMS: Ten systems reviewed and present above in the HPI. PHYSICAL EXAMINATION: Vital signs: Blood pressure 154/89, pulse 63, respiratory rate 18, temperature 98.2, O2 saturation 98% on room air. General: She is awake, alert, GCS of 15. Pupils are equal and reactive to light bilaterally. No vertical or lateral nystagmus. Tongue is midline. No facial droop. No slurred speech. No hemotympanum. No external signs of trauma to the head. No audible bruit or JV. Full range of motion of the neck without any difficulty. Heart rate and rhythm are regular without murmur, gallop, or rub. Lungs: Clear to auscultation bilaterally without wheeze, rales, or rhonchi. Abdomen: Soft. No tenderness, guarding, rebound, or rigidity. Femoral pulses symmetrical. No lower extremity edema, calf tenderness, or swelling. She has decreased sensation to the left upper extremity left lower extremity compared to the right and 2/4 strength on the left upper arm and left lower leg giving her an NIH stroke scale of 4. DIAGNOSTIC DATA: I did a CT regular which is negative. CT angiogram showed mild narrowing of the internal carotid artery, but no occlusion. Page 1 of 2 ALICE KYLE Emergency Room Report ALICE KYLE : 1945 EMERGENCY DEPARTMENT COURSE AND TREATMENT: She is out of the window for thrombolytics. At this point, she has almost 12 hours worth of symptoms. She is out of the for any thrombolytics. She does not need any intervention with a patent CTA of her brain and neck. I did give her some aspirin. DIAGNOSIS: Cerebrovascular accident. PLAN/DISPOSITION: I talked to Dr. Sharma, and we are going to go ahead and admit her to the hospital. Critical care time at the bedside was 35 minutes excluding billable procedures, including constant assessment, reassessment, and monitoring of vital signs. Dictated By: Sofía Elizabeth DO 08/13/19 19:29 JOB #: [id number] Transcribed By: [email or web address] 08/13/19 20:06 Electronically signed by: E-Sign: SOFÍA ELIZABETH MD 08/28/19 09:20 Page 2 of 2 ALICE KYLE Emergency Room Report Normal [facility] HISTORY AND PHYSICALon 08-24 HISTORY AND PHYSICAL [facility] HISTORY & PHYSICAL NAME ACCOUNT SEX AGE ADMIT DISCHARGE PT MED. RECORD# NUMBER DATE DATE TYPE ALICE KYLE [id number] F 74 08/13/19 1 [id number] ROOM: 302MO DATE OF : [birth year] DICTATING PHYSICIAN: Maggy Sharma ADMITTING DIAGNOSIS: Cerebrovascular accident. CHIEF COMPLAINT: Left leg weakness. HISTORY OF PRESENT ILLNESS: This is a 74-year-old lady who is generally healthy. She has not seen a provider recently for health care. She takes some herbal medications, otherwise none. Yesterday, she had a long day with a lot of work. She went to bed. The only thing she remembered was that she was tired. She woke up in the morning, had breakfast, and at about 7 a.m. she started to feel some numbness and tingling in her left leg, which was a little bit weak. When she tried to put weight on it, it almost gave out on her. After that, she propped her legs up and laid down for awhile. She thought this made her symptoms worse. She got up and around and thought maybe that made her symptoms better. Eventually, due to the persistent symptoms with the left-sided weakness, she did present to the Emergency Room. In the Emergency Room, she had very mild weakness on the left side. She had no other neurological symptoms. CTA of the brain revealed patent arteries with no evidence of clots. CT of the neck also revealed some arterial calcification. PAST MEDICAL HISTORY: She has not seen a doctor for many years. PAST SURGICAL HISTORY: The patient has had bilateral cataract surgery and some tooth extractions. MEDICATIONS: The patient takes some herbal medications but does not take any regular medications. FAMILY HISTORY: Both parents are . Father had heart disease as well as mother. REVIEW OF SYSTEMS: The patient denied fevers, chills, or night sweats. No weight loss or gain. Appetite has been good. No headache, blurry vision, earache or sore throat. No neck pain. No chest pain, shortness of breath, cough or phlegm production. No nausea, vomiting, abdominal pain, diarrhea, constipation, difficulty with urination, increased frequency or burning, or skin rashes. She does have some mild weakness on the left side, mostly now in the left leg. PHYSICAL EXAMINATION Page 1 of 3 ALICE KYLE History & Physical ALICE KYLE :1945 GENERAL APPEARANCE: This is a 74-year-old lady lying in bed fairly comfortable at the time of assessment. VITAL SIGNS: Her blood pressure was 139/73 on presentation, respirations 18, heart rate 56, and oxygen saturation on room air 97%. HEENT: Pupils are equal, round, and reactive to light. Normal eye motion. No injection. No icterus. No sinus tenderness. Tongue to midline. NECK: Supple. No JVD. LUNGS: Lungs were clear bilaterally. HEART: The heart was regular. She has a 2/6 systolic murmur in the aortic area. The point of maximum impulse is slightly shifted to the left. ABDOMEN: Abdomen is soft. No tenderness. No rigidity. Bowel sounds were positive. EXTREMITIES: Extremities revealed no edema, cyanosis or clubbing. NEUROLOGIC: Cranial nerves are grossly intact. Sensory: There was no significant deficit, and both sides were symmetrical. Motor: She has 5/5 motor power in both the upper and lower extremities. There was slight, unappreciable weakness in the left foot to the patient, which I was not able to tell myself. DIAGNOSTIC DATA: Laboratory data revealed her white count was 5.5, hemoglobin 13.3, hematocrit 39.7, and platelets 284,000. Troponin was less than 0.01. Sodium was 140, BUN 18, creatinine 0.7, and calcium 10.3. IMPRESSIONS: 1. Cerebrovascular accident in the right middle cerebral artery distribution, and she has some minimal weakness on the left side. No significant appreciable neurological findings. The symptoms started many hours before the patient presented to the Emergency Room. CTA did not reveal any evidence of positive clots in the arterial structure of the brain. No reported history of risk factors, but the patient has had no health care for the last few years. She has not seen any physician or primary care and has not had any testing. 2. Mild hypercalcemia of undetermined significance. PLAN: 1. Admit the patient to the hospital. 2. Aspirin. 3. Statin. 4. MRI of the brain. 5. Carotid Dopplers and echocardiogram. Page 2 of 3 ALICE KYLE History & Physical ALICE KYLE :1945 6. Neurological checks and monitor vital signs. 7. DVT prophylaxis with bilateral SCDs. The above was discussed with the patient, and she is agreeable with it. Dictated By: Maggy Sharma MD 08/13/19 22:57 JOB #: [id number] Transcribed By: soumya 08/14/19 09:15 Electronically signed by: E-Sign: MAGGY SHARMA MD 08/25/19 10:32 Update to H&P: [ ] No changes: I have examined the patient and reviewed the H&P and there are no changes. [ ] As previously dictated with the following changes: ____ ____ ____ PHYSICIAN SIGNATURE: TIME: DATE: Page 3 of 3 ALICE KYLE History & Physical Normal [facility] PROGRESS NOTESon 08-25-2019 PROGRESS NOTES [facility] PROGRESS NOTE NAME ACCOUNT SEX AGE ADMIT DISCHARGE PT MED. RECORD# NUMBER DATE DATE TYPE ALICE KYLE [id number] F 74 08/13/19 1 M [id number] ROOM: [facility] [place] DATE OF : 1945 DICTATING PHYSICIAN: Maggy Sharma DATE OF SERVICE: August 14, 2019 SUBJECTIVE: She states her right leg feels better. She is able to stand on it. She does still have some numbness in her right upper leg. She has not had any difficulty with her speech or swallowing. Update from nursing as well. OBJECTIVE: Blood pressure 126/77, heart rate 66, respirations 16, temperature 98.6, and oxygen saturation 96% on room air. This is a well-nourished, well-developed pleasant 74-year-old female in no acute distress. Speech is clear. No facial droop. She is not anxious or agitated. She is able to answer questions appropriately. She is oriented. Head: Normocephalic. Eyes: Conjunctivae not injected. Neck is supple. No JVD. Lungs: Normal respiratory effort, equal lung expansion. Extremities: Revealed no edema. She did have varicose veins. Left foot slightly weak with increased reflexes. DIAGNOSTIC DATA: Laboratory studies: Reviewed and on chart with MRI pending. ASSESSMENT/PLAN: 1. Cerebrovascular accident with right middle cerebral artery distribution, minimal weakness on the left side. She is on aspirin and statin. MRI is pending. We will obtain an echocardiogram to assess LV function and any valvular abnormalities and carotid Doppler ultrasound. She has physical therapy and recommended intermediate facility at discharge. 2. Above was discussed with the patient. All of her questions were answered, and she verbalized understanding of the plan. I evaluated the patient myself, the E&M above is accurate and done by me Ofe Sharma M.D. Dictated by chuckie Thomas for Maggy Sharma M.D. 08/14/19 11:50 JOB #: [id number] Transcribed By: am 08/14/19 13:42 Electronically signed by: E-Sign: MAGGY SHARMA MD 08/25/19 10:32 Page 1 of 2 ALICE KYLE Progress Note ALICE KYLE : 1945 Page 2 of 2 ALICE KYLE Progress Note Normal [facility] LIPID PROFILEon 08-15-2019 Cholesterol [Mass/Vol] 283 mg/dL Abnormal 0 - 200 mg/dL [facility] Comment on above: Performed By: #### 2 [id number] #### [facility],[address] [place], [place] [id number] Cholesterol in HDL [Mass/Vol] 71 mg/dL High 40 - 60 [facility] Comment on above: Performed By: #### 2 [id number] #### [facility],[address] [place] [address] Cholesterol in LDL [Mass/Vol] 185 mg/dL Abnormal 0 - 129 mg/dL [facility] Comment on above: Performed By: #### 2 [id number] #### [facility],[address] [place] [address] Cholesterol.total/Chol esterol in HDL [Mass ratio] 4.0 {ratio} Normal 0.0 - 5.0 [facility] Comment on above: Performed By: #### 2 [id number] #### [facility],[address] [place] [address] Lipid 1996 panel Normal [facility] Comment on above: Result Comment: LIPI D PROFILE Performed By: #### 2 [id number] #### [facility],[address] [place] [address] Triglyceride [Mass/Vol] 135 mg/dL Normal 0 - 150 mg/dL [facility] Comment on above: Performed By: #### 2 [id number] #### [facility],[address] [place] [address] Laboratory - Chemistry and C hemistry - challengeon 08-15-2019 Cholesterol in HDL [Mass or moles/Vol] 71 mg/dL Abnormal 40 - 60 mg/dL [facility]; [facility] Work Phone: Lipid 1996 panel Normal [facility]; [facility] [employer] Work Phone: CV CAROTID STUDY 0 CV CAROTID STUDY [place] [address] Patient: ALICE KYLE Phone#: : 1945 Age: 74 Gender: F Pt. Type: In Account: [id number] Location: [facility] Ordering: TYLER GALE Exam Date: 08/14/2019/10:52 Family Phys: ANNIE DORADO Charge Code: [id number] Physician: Billings Order #: [id number] DLP Dose#: PROCEDURE: CAROTID FLOW STUDY COMPARISON: None. INDICATIONS: Cerebrovascular accident TECHNIQUE: Color duplex Doppler ultrasound and pulsed Doppler analysis were performed to evaluate the cervical carotid arteries and vertebral flow. All measurements for carotid artery narrowing or stenosis were obtained using the ipsilateral distal internal carotid artery as the reference value. HOSPICE ART THERAPIST: SHARON PT HISTORY: CVA RIGHT IMAGING FINDINGS: CCA: Mild heterogenous plaque is present. ICA: Mild heterogenous plaque without hemodynamically significant stenosis. ECA: Moderate heterogenous plaque is present. Vertebral A: Antegrade flow Comments: Category: II. Less than 50% stenosis. ICA PSV less [id number]. Plaque and/or intimal thickening present. LEFT IMAGING FINDINGS: CCA: Mild heterogenous plaque is present. ICA: Mild heterogenous plaque without hemodynamically significant stenosis. ECA: Mild heterogenous plaque is present. Vertebral A: Antegrade flow. Comments: Continued Report - Page 2 of 2 Patient: ALICE KYLE Phone#: : 1945 Age: 74 Gender: F Pt. Type: In Account: [id number] Location: 010 Ordering: TYLER GALE Exam Date: 08/14/2019/10:52 Family Phys: ANNIE WOODARDD Charge Code: [id number] Physician: Billings Order #: [id number] DLP Dose#: Category: II Less than 50% stenosis ICA PSV, less [id number]. Plaque and/or intimal thickening present. RIGHT VELOCITY RECORDINGS Prox CCA: 81.19 cm/s Prox CCA EDV: 9.99 cm/s Mid CCA: 74.94 cm/s Mid CCA EDV: 11.24 cm/s Distal CCA: 62.45 cm/s Distal CCA EDV: 13.74 cm/s ECA: 115.77 cm/s ECA EDV: 4.06 cm/s Prox ICA: 66.97 cm/s Prox ICA EDV: 15.46 cm/s Mid ICA: 61.82 cm/s Mid ICA EDV: 20.61 cm/s Distal ICA: 52.39 cm/s Distal ICA EDV: 17.18 cm/s Vertebral Artery: 70.41 cm/s Vertebral Artery EDV: 15.46 cm/s Subclavian Artery: 107.78 cm/s LEFT VELOCITY RECORDINGS Prox CCA: 65.26 cm/s Prox CCA EDV: 13.74 cm/s Mid CCA: 66.97 cm/s Mid CCA EDV: 13.74 cm/s Distal CCA: 49.80 cm/s Distal CCA EDV: 12.02 cm/s ECA: 46.55 cm/s ECA EDV: 3.58 cm/s Prox ICA: 51.18 cm/s Prox ICA EDV: 17.62 cm/s Mid ICA: 55.70 cm/s Mid ICA EDV: 19.54 cm/s Distal ICA: 77.20 cm/s Distal ICA EDV: 25.41 cm/s Vertebral Artery: 51.96 cm/s Vertebral Artery EDV: 13.33 cm/s Subclavian Artery: 77.72 cm/s CONCLUSION: 1. Mild irregular mixed plaque is present bilaterally. 2. There is no evidence of hemodynamically significant stenosis. Dictated by: Cuca Shelley MD on 08/14/2019 at 12:05 Approved by: Cuca Shelley MD on 08/14/2019 at 12:05 Normal [facility] CV ECHO COMPLETE W/SALINEon 08-14-2019 CV ECHO COMPLETE W/SALINE [place] [address] Patient: ALICE KYLE Phone#: : 1945 Age: 74 Gender: F Pt. Type: In Account: [id number] Location: [facility] Ordering: TYLER GALE Exam Date: 08/14/2019/11:08 Family Phys: ANNIE DORADO Charge Code: [id number] Physician: Billings Order #: [id number] DLP Dose#: PROCEDURE: ECHO COMPLETE WITH SALINE HISTORY: Patient is 74-year-old female with CVA INDICATIONS: Cerebrovascular accident TECHNIQUE: A 2-D ultrasound, color spectral Doppler and M-mode evaluation of the heart and great vessels. PATIENT MEASUREMENTS: Height (in.): 65 BSA: 1.6 Weight (lbs.): 125 BP: 126/77 Pre Parole Counseling Aide: SHARON M MODE 2D MEASUREMENTS AND CALCULATIONS: LVIDd: 3.9 cm LVIDs: 2.1 cm IVSd: 0.9 cm LVPWd: 0.9 cm LVOT diam: 2.1 cm FS: 40 % Ao Root diam: 3.43 cm LA diam: 3.12 cm LA Volume Index: 23 mL/m2 LA A4 Area: 16.1 cm2 RA A4 Area: 11.4 cm2 RVDd: 2.17 cm TAPSE: 17 mm DOPPLER MEASUREMENTS AND CALCULATIONS MITRAL MV E MAX tylor: 33.00 cm/s MV A MAX tylor: 55.10 cm/s MV E-A ratio: 0.60 Lat Peak E' Tylor 5 cm/sec Continued Report - Page 2 of 3 Patient: ALICE KYLE Phone#: : 1945 Age: 74 Gender: F Pt. Type: In Account: [id number] Location: 010 Ordering: TYLER GALE Exam Date: 08/14/2019/11:08 Family Phys: ANNIE DORADO Charge Code: [id number] Physician: [place] Order #: [id number] DLP Dose#: Septal Peak E' TYLOR 5 cm/sec e/e' lateral 7 e/e' medial 7 AORTIC Ao V2 max: 150.41 cm/s Ao max P.05 mm[Hg] LV V1 Max 80.85 cm/s LV V1 Max PG 2.61 mm[Hg] PULMONIC PA V2 Max 100.94 cm/s PA Max PG 4.08 mm[Hg] TRICUSPID TR Max Tylor 231 cm/s TR max PG 21 mm[Hg] RVSP 2D/M-MODE AND COLOR FLOW LEFT VENTRICLE: Left ventricle is normal in size and thickness. Systolic ejection fraction is 55-59%. There are no wall motion abnormality seen. There is grade 1 diastolic dysfunction. WALL MOTION: 1 - Basal anterior: Normal. 7 - Mid anterior: Normal. 13 - Apical anterior: Normal. 2 - Basal anteroseptal: Normal. 8 - Mid anteroseptal: Normal. 14 - Apical septal: Normal. 3 - Basal inferoseptal: Normal. 9 - Mid inferoseptal: Normal. 15 - Apical inferior: Normal. 4 - Basal inferior: Normal. 10-Mid inferior: Normal. 16 - Apical lateral: Normal. 5 - Basal inferolateral: Normal. 11-Mid inferolateral: Normal. 6 - Basal anterolateral: Normal. 12-Mid anterolateral: Normal. RIGHT VENTRICLE: Right ventricle is normal in size and systolic function LEFT ATRIUM: Left atrium is normal in size RIGHT ATRIUM: Right atrium is normal in size ATRIAL SEPTUM: Agitated saline did not show interatrial ldfey-xo-epye shunt at rest and with Valsalva. MITRAL VALVE: There is mild mitral annular calcification. Mitral valve appears mildly thick. There is minimal mitral valve prolapse. There is trivial mitral valve regurgitation and no stenosis TRICUSPID VALVE: Tricuspid valve appears normal in structure. There is trivial tricuspid valve regurgitation and no stenosis AORTIC VALVE: Aortic valve is trileaflet with mild sclerosis. There is no aortic valve regurgitation or stenosis. PULMONIC VALVE: Pulmonic valve is inadequately visualized. There is mild pulmonic valve regurgitation no stenosis AORTIC ROOT: Aortic root is normal in size. Continued Report - Page 3 of 3 Patient: ALICE KYLE Phone#: : 1945 Age: 74 Gender: F Pt. Type: In Account: [id number] Location: [facility] Ordering: TYLER BOYDLAND Exam Date: 08/14/2019/11:08 Family Phys: ANNIE DORADO Charge Code: [id number] Physician: [place] Order #: [id number] DLP Dose#: AORTIC ARCH: Aortic arch is normal in size. DESC THORACIC AORTA: The ascending aorta is normal in size. Doppler shows normal systolic and diastolic IVC/SVC: IVC is normal in size with > 50% collapse of inspiration. Estimated right atrial pressure is 3 mm Hg PULMONARY VEINS: Inadequate Doppler PERICARDIUM: There is no pericardial effusion. CONCLUSION: 1. Left ventricle is normal in size and thickness. Systolic ejection fraction is 55-59%. There are no regional wall motion abnormality seen. 2. There is mild mitral valve prolapse and trivial mitral valve regurgitation 3. Right ventricle is normal in size and systolic function. 4. Agitated saline did not show any interatrial eqrbn-ut-suwh shunt at rest and with Valsalva 5. There are no prior studies for comparison. Dictated by: LINDSAY RAO MD on 08/14/2019 at 17:43 Approved by: LINDSAY RAO MD on 08/14/2019 at 17:43 Normal [facility] MR MRI BRAIN W/O CONTRASTon 08-14-2019 MR MRI BRAIN W/O CONTRAST [place] [address] Patient: ALICE KYLE Phone#: : 1945 Age: 74 Gender: F Pt. Type: In Account: [id number] Location: [facility] Ordering: MAGGY SHARMA Exam Date: 08/14/2019/15:36 Family Phys: ANNIE DORADO Charge Code: [id number] Physician: [place] Order #: [id number] DLP Dose#: PROCEDURE: MRI BRAIN WITHOUT CONTRAST COMPARISON: [facility], CT, BRAIN W/O CON, 08/13/2019, 18:08. INDICATIONS: Numbness left side TECHNIQUE: A variety of imaging planes and parameters were utilized for visualization of suspected pathology. Images were performed without contrast. FINDINGS: CEREBRUM: In the right thalamus there is T2 and FLAIR signal hyperintensity with associated restricted diffusion. This is consistent with an infarct several hour to several days in age. The infarct measures 1.1 x 1.2 x 0.4 cm. There is no associated freeman on hemo sequence. There is mild global atrophy. There is T2 and FLAIR signal hyperintensity, in a patient of this age group consistent with chronic small vessel ischemic disease. CEREBELLUM: No edema, hemorrhage, mass, acute infarction, or inappropriate atrophy. BRAINSTEM: No edema, hemorrhage, mass, acute infarction, or inappropriate atrophy. CSF SPACES: Ventricles, cisterns, and sulci are appropriate for age. No hydrocephalus, subarachnoid hemorrhage, or mass. SKULL: No mass or other significant visible lesion. SINUSES: Limited views demonstrate no significant mucosal thickening or fluid. ORBITS: Limited views are unremarkable. OTHER: Negative. CONCLUSION: 1. Right thalamus infarct measuring several hours to several days in age. This report was communicated by telephone to Dr. Sharma at the dictation time shown below. 2. Chronic small vessel ischemic disease. Dictated by: Lisa Vivar MD on 08/14/2019 at 16:34 Approved by: Lisa Vivar MD on 08/14/2019 at 16:36 Normal [facility] BMP with eGFRon 08-13-2019 Age - Reported 74 years Normal [place] Comment on above: Performed By: #### 2 [id number] #### [facility],[address] [place] [address] Anion gap [Moles/Vol] 13 mmol/L Normal 10 - 20 mmol/L [facility] Comment on above: Performed By: #### 2 04182 #### [facility],[address] [place] [address]709 Calcium [Mass/Vol] 10.3 mg/dL Abnormal 8.6 - 10. 2 mg/dL [facility] Comment on above: Performed By: #### 2 73551 #### [facility],[address] [place], [place] [id number] Chloride [Moles/Vol] 103 mmol/L Normal 98 - 10 7 mmol/L [facility] Comment on above: Performed By: #### 2 77055 #### [facility],[address] [place], [place] [id number] CO2 [Moles/Vol] 27.7 mmol/L Normal 21.0 - 31.0 mmol/L [facility] Comment on above: Performed By: #### 2 14494 #### [facility],[address] [place], [place] [id number] Creatinine [Mass/Vol] 0.7 mg/dL Normal 0.6 - 1.2 mg/dL [facility] Comment on above: Performed By: #### 2 59522 #### [facility],[address] [place], [place] [id number] GFR/1.73 sq M predicted among non-blacks MDRD (S/P/Bld) [Vol rate/Area] mL/min/{1.73_m2} Normal 60 - 999 [facility] Comment on above: Performed By: #### 2 75409 #### [facility],[address] [place], [place] [id number] Result Comment: ACCO RDING TO THE NATIONAL KIDNEY DISEASE EDUCATION PROGRAM(NKDE), A NORMAL eGFR IS A VALUE GREATER THAN OR EQUAL TO 60 ML/MIN/1.73 SQ METERS. CHRONIC KIDNEY DISEASE: <60mL/MIN/1.73 SQ METERS KIDNEY FAILURE: <15mL/MIN/1.73 SQ METERS THIS TEST SHOULD ONLY BE USED FOR PATIENTS 18 YEARS OF AGE AND OLDER. GFR/1.73 sq M predicted among non-blacks MDRD (S/P/Bld) [Vol rate/Area] Normal [facility] Comment on above: Result Comment: BASI C METABOLIC PANEL Performed By: #### 2 07578 #### [facility],[address] [place], [place] [id number] Glucose [Mass/Vol] 87 mg/dL Normal 74 - 106 mg/dL [facility] Comment on above: Performed By: #### 2 91039 #### [facility],[address] [place] [address] Potassium [Moles/Vol] 3.7 mmol/L Normal 3.5 - 5.1 mmol/L [facility] Comment on above: Performed By: #### 2 11173 #### [facility],[address] [place] [address] Sodium [Moles/Vol] 140 mmol/L Normal 136 - 145 mmol/L [facility] Comment on above: Performed By: #### 2 00486 #### [facility],[address] [place], [place] [id number] Urea nitrogen [Mass/Vol] 18 mg/dL Normal 6 - 20 mg/dL [facility] Comment on above: Performed By: #### 2 40360 #### [facility],[address] [place], [place] [id number] BNP (B-TYPE NATRIURETIC PEPT YAS)on 08-13-2019 Natriuretic peptide B (Bld) [Mass/Vol] 70 pg/mL Normal 1 - 100 pg/mL [facility] Comment on above: Performed By: #### 2 38821 #### [facility],[address] [place] [address]324 CBC + DIFFon 08-13-2019 Basophils (Bld) [#/Vol] 0.00 x10EE3/UL Normal 0.00 - 0.10 [facility] Comment on above: Performed By: #### 2 30089 #### [facility],[address] [place] [address] 38200 Basophils/100 WBC (Bld) 0.7 % Normal 0.0 - 2.0 % [facility] Comment on above: Performed By: #### 2 80675 #### [facility],[address] [place] [address] CBC + DIFF Normal [facility] Comment on above: Result Comment: CBC- COMPLETE BLOOD COUNT Performed By: #### 2 96879 #### [facility],[address] [place] [address] Eosinophils (Bld) [#/Vol] 0.10 x10EE3/UL Normal 0.00 - 0.50 [facility] Comment on above: Performed By: #### 2 08228 #### [facility],[address] [place] [address] Eosinophils/100 WBC (Bld) 2.7 % Normal 0.0 - 7.0 % [facility] Comment on above: Performed By: #### 2 49366 #### [facility],[address] [place] [address] Erythrocyte distribution width (RBC) [Ratio] 14.0 % Normal 12.0 - 15.6 % [facility] Comment on above: Performed By: #### 2 05232 #### [facility],[address] [place] [address] Hematocrit (Bld) [Volume fraction] 39.7 % Normal 34.0 - 46.0 % [facility] Comment on above: Performed By: #### 2 54308 #### [facility],[address] [place] [address] Hemoglobin (Bld) [Mass/Vol] 13.3 g/dL Normal 12.0 - 16.0 g/dL [facility] Comment on above: Performed By: #### 2 28737 #### [facility],[address] [place] [address] Lymphocytes (Bld) [#/Vol] 1.30 x10EE3/UL Normal 0.80 - 2.80 [facility] Comment on above: Performed By: #### 2 12844 #### [facility],[address] [place] [address]9621 Lymphocytes/100 WBC (Bld) 23.2 % Normal 20.0 - 45.0 % [facility] Comment on above: Performed By: #### 2 88135 #### [facility],[address] [place] [address]164 MANUAL DIFF N/A Normal [facility] Comment on above: Performed By: #### 2 35538 #### [facility],[address] [place] [address] 74992 MCH (RBC) [Entitic mass] 30 pg Normal 27 - 33 pg [facility] Comment on above: Performed By: #### 2 18101 #### [facility],[address] [place] [address] 35671 MCHC (RBC) [Mass/Vol] 34 X10 3 Normal 32 - 36 [facility] Comment on above: Performed By: #### 2 57163 #### [facility],[address] [place] [address] 12068 MCV (RBC) [Entitic vol] 89 fL Normal 80 - 99 fL [facility] Comment on above: Performed By: #### 2 99336 #### [facility],[address] [place] [address] 56365 Monocytes (Bld) [#/Vol] 0.40 x10EE3/UL Normal 0.20 - 1.00 [facility] Comment on above: Performed By: #### 2 08693 #### [facility],[address] [place] [address]24 MONOS % 7.0 % Normal 0.0 - 10.0 [facility] Comment on above: Performed By: #### 2 27164 #### [facility],[address] [place] [address] 32825 Morphology Jamison (Bld) [Interp] N/A Normal [facility] Comment on above: Performed By: #### 2 28939 #### [facility],[address] [place] [address] 01529 Neutrophils (Bld) [#/Vol] 3.70 x10EE3/UL Normal 1.50 - 7.10 [facility] Comment on above: Performed By: #### 2 42833 #### [facility],[address] [place] [address] 12190 Neutrophils/100 WBC (Bld) 66.4 % Normal 46.0 - 76.0 % [facility] Comment on above: Performed By: #### 2 98936 #### [facility],[address] [place] [address] 52339 Platelet mean volume (Bld) [Entitic vol] 8.7 fL Normal 6.6 - 10.5 fL [facility] Comment on above: Result Comment: AUTO MATED DIFFERENTIAL Performed By: #### 2 15397 #### [facility],[address] [place] [address] 08208 Platelets (Bld) [#/Vol] 284 x10EE3/UL Normal 150 - 450 [facility] Comment on above: Performed By: #### 2 78601 #### [facility],[address] [place] [address] 03939 RBC (Bld) [#/Vol] 4.48 x 10EE6/UL Normal 4.10 - 5.[address] [facility] Comment on above: Performed By: #### 2 37427 #### [facility],[address] [place] [address] 53498 WBC (Bld) [#/Vol] 5.5 x 10EE3/UL Normal 4.5 - 10.8 [facility] Comment on above: Performed By: #### 2 64197 #### [facility],[address] [place] [address] 97998 CHEST 1 VIEWon 08-13-2019 CHEST 1 VIEW [place] [address] Patient: ALICE KYLE Phone#: : 1945 Age: 74 Gender: F Pt. Type: ER Account: [id number] Location: 010 Ordering: DR. SOFÍA ELIZABETH Exam Date: 08/13/2019/19:41 Family Phys: ANNIE DORADO Charge Code: [id number] Physician: [place] Order #: [id number] DLP Dose#: PROCEDURE: X-RAY CHEST 1 VIEW COMPARISON: None. INDICATIONS: Weakness. FINDINGS: LUNGS: Normal. No significant pulmonary parenchymal abnormalities. VASCULATURE: Normal. Unremarkable pulmonary vasculature. CARDIAC: Mild cardiomegaly. MEDIASTINUM: Atherosclerotic aorta with no visible aneurysm. PLEURA: Normal. No effusion or pleural thickening. BONES: Normal. No fracture or visible bony lesion. OTHER: Negative. CONCLUSION: No acute disease. Mild cardiomegaly. Dictated by: Cuca Shelley MD on 08/14/2019 at 8:24 Approved by: Cuca Shelley MD on 08/14/2019 at 8:24 Normal [facility] CT ANGIOGRAPHY HEAD W/CONTRA STon 08-13-2019 CT ANGIOGRAPHY HEAD W/CONTRAST [place] [address] Patient: ALICE KYLE Phone#: : 1945 Age: 74 Gender: F Pt. Type: ER Account: [id number] Location: 010 Ordering: DR. SOFÍA ELIZABETH Exam Date: 08/13/2019/18:17 Family Phys: ANNIE DORADO Charge Code: [id number] Physician: [place] Order #: [id number] DLP Dose#: 143.0 mGy PROCEDURE: CT ANGIOGRAPHY HEAD WITH CONTRAST COMPARISON: None. INDICATIONS: Numbness. TECHNIQUE: After obtaining the patient's consent, CT images of the head were obtained with non- ionic contrast, and MPR and 3D imaging were created and interpreted to optimize visualization of vascular anatomy. All CT scans at this facility use dose modulation, iterative reconstruction, and/or weight based dosing when appropriate to reduce radiation dose to as low as reasonably achievable. IV CONTRAST: Visipaque 320,75ml TOTAL DOSE: 143.0 CTDIvol(mGy) FINDINGS: VASCULATURE: Normal. No significant stenosis. No visible aneurysm or vascular malformation. VENTRICLES: Normal for age. No enlargement or displacement. CEREBRUM: Normal for age. No excessive atrophy, mass, or hemorrhage, or abnormal enhancement. CEREBELLUM: Normal for age. No excessive atrophy, mass, or hemorrhage, or abnormal enhancement. BRAINSTEM: Normal for age. No excessive atrophy, mass, or hemorrhage, or abnormal enhancement. BASAL CISTERNS: Normal. No subarachnoid hemorrhage or effacement. SKULL: Negative. CONCLUSION: 1. There is no evidence of significant stenosis or vascular cut off. [place] [address] Patient: ALICE KYLE Phone#: : 1945 Age: 74 Gender: F Pt. Type: ER Account: [id number] Location: 010 Ordering: DR. SOFÍA ELIZABETH Exam Date: 08/13/2019/18:17 Family Phys: ANNIE DORADO Charge Code: [id number] Physician: [place] Order #: [id number] DLP Dose#: 143.0 mGy Dictated by: Cuca Shelley MD on 08/14/2019 at 8:40 Approved by: Cuca Shelley MD on 08/14/2019 at 8:40 Normal [facility] CT ANGIOGRAPHY NECK 2019 CT ANGIOGRAPHY NECK [place] [address] Patient: ALICE KYLE Phone#: : 1945 Age: 74 Gender: F Pt. Type: ER Account: [id number] Location: 010 Ordering: DR. SOFÍA ELIZABETH Exam Date: 08/13/2019/18:17 Family Phys: ANNIEDARRICK DORADO Charge Code: [id number] Physician: [place] Order #: [id number] DLP Dose#: 143.0 mGy PROCEDURE: CT ANGIOGRAPHY CAROTIDS WITH CONTRAST COMPARISON: None. INDICATIONS: Numbness. TECHNIQUE: After obtaining the patient's consent, CT images of the neck were obtained with non- ionic intravenous contrast material. MPR/MIPS and 3D images were created to optimize visualization of vascular anatomy. All CT scans at this facility use dose modulation, iterative reconstruction, and/or weight based dosing when appropriate to reduce radiation dose to as low as reasonably achievable. IV CONTRAST: Visipaque 320,75ml TOTAL DOSE: 143.0 CTDIvol(mGy) FINDINGS: LEFT INTERNAL CAROTID: No hemodynamically significant stenosis or dissection. EXTERNAL CAROTID: No hemodynamically significant stenosis or dissection. COMMON CAROTID: Calcification is present at the carotid bulb. VERTEBRAL: No hemodynamically significant stenosis or dissection. RIGHT INTERNAL CAROTID: No hemodynamically significant stenosis or dissection. EXTERNAL CAROTID: No hemodynamically significant stenosis or dissection. COMMON CAROTID: Calcifications present at the carotid bulb. VERTEBRAL: No hemodynamically significant stenosis or dissection. OTHER: The visualized soft tissues of the neck are also unremarkable. Continued Report - Page 2 of 2 Patient: ALICE KYLE Phone#: : 1945 Age: 74 Gender: F Pt. Type: ER Account: [id number] Location: [facility] Ordering: DR. SOFÍA ELIZABETH Exam Date: 08/13/2019/18:17 Family Phys: ANNIE DORADO Charge Code: [id number] Physician: [place] Order #: [id number] DLP Dose#: 143.0 mGy CONCLUSION: 1. Calcifications present at the carotid bulb. 2. There is no evidence of significant stenosis or vascular cut off. Dictated by: Cuca Shelley MD on 08/14/2019 at 8:37 Approved by: Cuca Shelley MD on 08/14/2019 at 8:37 Normal [facility] CT BRAIN W/O CONTRASTon 08-02 CT BRAIN W/O CONTRAST [place] [id number] Patient: ALICE KYLE Phone#: : 1945 Age: 74 Gender: F Pt. Type: ER Account: [id number] Location: [facility] Ordering: DR. SOFÍA ELIZABETH Exam Date: 08/13/2019/18:08 Family Phys: Charge Code: [id number] Physician: [place] Order #: [id number] DLP Dose#: 52.3 mGy PROCEDURE: CT BRAIN WITHOUT CONTRAST COMPARISON: None. INDICATIONS: Numbness. TECHNIQUE: CT images were obtained without contrast material. All CT scans at this facility use dose modulation, iterative reconstruction, and/or weight based dosing when appropriate to reduce radiation dose to as low as reasonably achievable. IV CONTRAST: No IV contrast used,0ml TOTAL DOSE: 52.3 CTDIvol(mGy) FINDINGS: CEREBRUM: Age-appropriate atrophy is present, without visible acute hemorrhage or lesion. CEREBELLUM: No edema, hemorrhage, mass, acute infarction, or inappropriate atrophy. BRAINSTEM: No edema, hemorrhage, mass, acute infarction, or inappropriate atrophy. CSF SPACES: Ventricles, cisterns, and sulci are appropriate for age. No hydrocephalus, subarachnoid hemorrhage, or mass. SKULL: No mass or other significant visible lesion. SINUSES: Mild ethmoid mucosal thickening. ORBITS: Limited views are unremarkable. OTHER: Negative. CONCLUSION: No acute disease. Dictated by: Cuca Shelley MD on 08/14/2019 at 8:31 Approved by: Cuca Shelley MD on 08/14/2019 at 8:31 Normal [facility] Laboratory - Chemistry and C hemistry - challengeon 08-13-2019 GFR/1.73 sq M.predicted among blacks MDRD (S/P/Bld) [Vol rate/Area] mL/min/{1.73_m2} Normal 60 - 999 {ML/MINUTE} [facility] Work Phone: GFR/1.73 sq M.predicted MDRD (S/P/Bld) [Vol rate/Area] mL/min/{1.73_m2} Normal 60 - 999 {ML/MINUTE} [facility] Work Phone: Troponin I.cardiac Qn <0.01 Normal 0.00 - 0.05 ng/mL [facility] [employer] [facility] [employer] [facility]. Work Phone: Laboratory - Hematology and Cell countson 08-13-2019 Basophils (Bld) [#/Vol] 0.00 {x10EE3/UL} Normal 0.00 - 0.10 {x10EE3/UL} [facility] [employer] [facility].; [facility] [employer] [facility]. Work Phone: Eosinophils (Bld) [#/Vol] 0.10 {x10EE3/UL} Normal 0.00 - 0.50 {x10EE3/UL} [facility] [employer] [facility].; [facility] [employer] [facility]. Work Phone: Lymphocytes (Bld) [#/Vol] 1.30 {x10EE3/UL} Normal 0.80 - 2.80 {x10EE3/UL} [facility] [employer] [facility].; [facility], [facility]. Work Phone: MCHC (RBC) [Mass/Vol] 34 {X10_3} Normal 32 - 3 6 {X10_3} [facility], [facility]. Work Phone: Monocytes (Bld) [#/Vol] 0.40 {x10EE3/UL} Normal 0.20 - 1.00 {x10EE3/UL} [facility], [facility]. Work Phone: Monocytes/100 WBC (Bld) 7.0 % Normal 0.0 - 10.0 % [facility] [employer] [facility].; [facility], [facility]. Work Phone: Neutrophils (Bld) [#/Vol] 3.70 {x10EE3/UL} Normal 1.50 - 7.10 {x10EE3/UL} [facility], [facility] Work Phone: Platelets (Bld) [#/Vol] 284 {x10EE3/UL} Normal 150 - 450 {x10EE3/UL} [employer] [facility] [employer]. Work Phone: RBC (Bld) [#/Vol] 4.48 {x_10EE6/UL} Normal 4.10 - 5.30 {x_10EE6/UL} [employer] [facility] [employer]. Work Phone: WBC (Bld) [#/Vol] 5.5 {x_10EE3/UL} Normal 4.5 - 10.8 {x_10EE3/UL} [employer] [facility] [employer]. Work Phone: No Panel Informationon 08-12 AGE 74 {years} Normal [facility] [employer] [facility] [employer]. Work Phone: BMP with eGFR Normal [employer]. Work Phone: CBC + DIFF Normal [employer]; [employer] [facility] [employer]. Work Phone: TROPONINon 08-13-2019 Troponin I.cardiac [Mass/Vol] ng/mL Normal 0.00 - 0.05 [facility] Comment on above: Result Comment: Elev ated troponin (above the 99th percentile) usually indicates myocardial ischemia. Results must be interpreted within the clinical setting. 1.Non-ischemic pathology can also cause elevated troponin levels (e.g., acute pulmonary embolism, myocarditis, pericarditis, heart failure, intracranial injury, rhabdomyolisis, sepsis, shock and renal insufficiency). 2.Approximately 1% of healthy adults have elevated troponin levels. 3.Analytical false positive results rarely occur(due to multiple interferences such as heterophile antibodies). Performed By: #### 2 [id number] #### [facility],[address] [place] [address] Vital Signs Date Time Vital Sign Value Performing Clinician Ria ott 02-09-2025 13:38-0400 Body height 162.56 cm Nae Morales RN [facility] 02-09-2025 13:38-0400 Body mass index (BMI) [Ratio] 19.57 kg/m2 Nae Morales RN [facility] 02-09-2025 13:38-0400 Body surface area Derived from formula 1.54 m2 Nae Morales RN [facility] 02-09-2025 13:38-0400 Body weight 51.71 kg Nae Morales RN [facility], [facility] [facility] 02-09-2025 13:38-0400 Diastolic blood pressure 86 mm[Hg] Nae Morales RN [facility] Comment on above: Patient Position: Sitting; Cuff Location : Left Arm; Cuff Size: Large 02-09-2025 13:38-0400 Heart rate 68 /min Nae Morales RN [facility], [facility].; [facility] Comment on above: Pattern: Regular 02-09-2025 13:38-0400 Systolic blood pressure 150 mm[Hg] Nae Morales RN [facility], [facility].; [facility] Comment on above: Patient Position: Sitting; Cuff Location : Left Arm; Cuff Size: Large 09-18-2024 10:180400 Body height 162.56 cm Nae Morales RN [facility], [facility] 09-18-2024 10:18-0400 Body mass index (BMI) [Ratio] 20.25 kg/m2 Nae Morales RN [facility], [facility] 09-18-2024 10:18-0400 Body surface area Derived from formula 1.56 m2 Nae Morales RN [facility], [facility].; [facility] 09-18-2024 10:18-0400 Body weight 53.52 kg Nae Morales RN [facility] 09-18-2024 10:18-0400 Diastolic blood pressure 83 mm[Hg] Nae Morales RN [facility] [employer] [facility] Comment on above: Patient Position: Sitting; Cuff Location : Left Arm; Cuff Size: Large 09-18-2024 10:18-0400 Heart rate 58 /min Nae Morales RN [facility], [facility].; [facility] Comment on above: Pattern: Regular 09-18-2024 10:18-0400 Inhaled oxygen concentration 21 % Nae Morales RN [facility] [employer] [facility], [facility]. Comment on above: Room air 09-18-2024 10:18-0400 SaO2% (BldA) [Mass fraction] 95 % Nae Morales RN [facility], [facility] 09-18-2024 10:18-0400 Systolic blood pressure 149 mm[Hg] Nae Morales RN [facility] [employer] [facility] [employer] Comment on above: Patient Position: Sitting; Cuff Location : Left Arm; Cuff Size: Large 12-12-2023 13:55-0400 Body height 162.56 cm Millie Greer RN [facility], [facility].; [employer] [facility] 12-12-2023 13:55-0400 Body mass index (BMI) [Ratio] 19.57 kg/m2 Millie Greer RN [facility], [facility].; [facility] 12-12-2023 13:55-0400 Body surface area Derived from formula 1.54 m2 Millie Greer RN [facility], [facility].; [employer] [facility], [facility]. 12-12-2023 13:55-0400 Body temperature 97.4 [degF] Millie Greer RN [facility], [facility] Comment on above: Method: Oral 12-12-2023 13:55-0400 Body weight 51.71 kg Millie Greer RN [facility], [facility] 12-12-2023 13:55-0400 Diastolic blood pressure 79 mm[Hg] Millie Greer RN [facility], [facility] Comment on above: Patient Position: Sitting; Cuff Location : Left Arm; Cuff Size: Standard 12-12-2023 13:55-0400 Heart rate 68 /min Millie Greer RN [facility], [facility] Comment on above: Pattern: Regular 12-12-2023 13:55-0400 Systolic blood pressure 124 mm[Hg] Millie Greer RN [facility], [facility] Comment on above: Patient Position: Sitting; Cuff Location : Left Arm; Cuff Size: Standard 11-21-2023 14:59-0400 Body height 162.56 cm Carmen Rice [facility].; [facility] 11-21-2023 14:59-0400 Body mass index (BMI) [Ratio] 19.57 kg/m2 Carmen Rice [facility].; [facility] 11-21-2023 14:59-0400 Body surface area Derived from formula 1.54 m2 Carmen Rangelt [facility].; [facility] 11-21-2023 14:59-0400 Body temperature 97.9 [degF] Carmen Rice [facility].; [employer] [facility] Comment on above: Method: Oral 11-21-2023 14:59-0400 Body weight 51.71 kg Carmen Rangelt [facility].; [facility] 11-21-2023 14:59-0400 Diastolic blood pressure 72 mm[Hg] Carmen Rice [facility].; [employer] [facility], [facility]. Comment on above: Patient Position: Sitting; Cuff Location : Left Arm; Cuff Size: Standard 11-21-2023 14:59-0400 Heart rate 61 /min Carmen Rice [facility], [facility].; [employer] [facility] Comment on above: Pattern: Regular 11-21-2023 14:59-0400 Inhaled oxygen concentration 21 % Carmen Rice [facility] [employer] [facility] Comment on above: Room air 11-21-2023 14:59-0400 SaO2% (BldA) [Mass fraction] 97 % [facility] [employer] [facility] 11-21-2023 14:59-0400 Systolic blood pressure 116 mm[Hg] Carmen Rice [facility].; [employer] [facility] Comment on above: Patient Position: Sitting; Cuff Location : Left Arm; Cuff Size: Standard 11-27-2022 10:54-0400 Body height 162.56 cm Fawn [facility], [facility].; [employer] [facility] [place] [facility] 11-27-2022 10:54-0400 Body mass index (BMI) [Ratio] 19.05 kg/m2 Fawn Power [facility].; [employer] [facility] 11-27-2022 10:54-0400 Body surface area Derived from formula 1.52 m2 Afwn F [place] [facility], [facility].; [employer] [facility] [place] [facility] 11-27-2022 10:54-0400 Body weight 50.35 kg Fawn [employer] [facility], [facility].; [employer] 11-27-2022 10:54-0400 Diastolic blood pressure 68 mm[Hg] Fawn [facility].; [employer] [facility] Comment on above: Patient Position: Sitting; Cuff Location : Left Arm; Cuff Size: Standard 11-27-2022 10:54-0400 Heart rate 66 /min Fawn Christensenck [facility] Comment on above: Pattern: Regular 11-27-2022 10:54-0400 Systolic blood pressure 103 mm[Hg] Fawn Steve Marin [facility] [employer] [facility].; [facility], [facility]. Comment on above: Patient Position: Sitting; Cuff Location : Left Arm; Cuff Size: Standard 07-18-2021 10:14-0500 Body height 162.56 cm Nae Morales [facility] [employer] [facility]. 07-18-2021 10:14-0500 Body mass index (BMI) [Ratio] 20.08 kg/m2 Nae Morales RN [facility], [facility].; [facility], [facility]. 07-18-2021 10:14-0500 Body surface area Derived from formula 1.56 m2 Nae Morales RN [facility], [facility].; [facility], [facility]. 07-18-2021 10:14-0500 Body weight 53.07 kg Nae Morales RN [facility], [facility].; [facility] 07-18-2021 10:14-0500 Diastolic blood pressure 90 mm[Hg] Nae Morales RN [facility], [facility]. Comment on above: Patient Position: Sitting; Cuff Location : Left Arm; Cuff Size: Large 07-18-2021 10:14-0500 Heart rate 67 /min Nae Morales RN [facility].; [employer] [facility] Comment on above: Pattern: Regular 07-18-2021 10:14-0500 Systolic blood pressure 141 mm[Hg] Nae Morales RN [facility], [facility].; [facility] [facility]. Comment on above: Patient Position: Sitting; Cuff Location : Left Arm; Cuff Size: Large 09-07-2020 13:21-0400 Body height 162.56 cm ANNIE DORADO MD Work Phone: [facility]; [facility] 09-07-2020 13:21-0400 Body mass index (BMI) [Ratio] 20.77 kg/m2 ANNIE DORADO MD Work Phone: [facility]; [facility] 09-07-2020 13:21-0400 Body surface area Derived from formula 1.58 m2 ANNIE DORADO MD Work Phone: [facility]; [facility] 09-07-2020 13:21-0400 Body weight 54.89 kg ANNIE DORADO MD Work Phone: [facility]; [facility] 09-07-2020 13:21-0400 Diastolic blood pressure 74 mm[Hg] ANNIE DORADO MD Work Phone: [facility]; [facility]. Comment on above: Patient Position: Sitting; Cuff Location : Left Arm; Cuff Size: Standard 09-07-2020 13:21-0400 Heart rate 58 /min ANNIE DORADO MD Work Phone: [facility]; [facility] [employer] [facility] Comment on above: Pattern: Regular 09-07-2020 13:21-0400 Systolic blood pressure 124 mm[Hg] ANNIE DORADO MD Work Phone: [facility]; [facility] Comment on above: Patient Position: Sitting; Cuff Location : Left Arm; Cuff Size: Standard 08-18-2019 14:45-0400 Body height 162.56 cm Millie Greer [facility] 08-18-2019 14:45-0400 Body mass index (BMI) [Ratio] 21.15 kg/m2 Millie Greer RN [facility] [employer] [facility] [facility] 08-18-2019 14:45-0400 Body surface area Derived from formula 1.59 m2 Millie Greer RN [facility], [facility].; [employer] [facility] [place] [facility] 08-18-2019 14:45-0400 Body temperature 97.9 [degF] Millie Greer RN [facility].; [employer] [facility] [employer] Comment on above: Method: Oral 08-18-2019 14:45-0400 Body weight 55.88 kg Millie Greer RN [facility], [facility].; [employer] [facility] [employer] [facility] 08-18-2019 14:45-0400 Diastolic blood pressure 77 mm[Hg] Millie Greer RN [facility] [employer] [facility] [place] [employer] Comment on above: Patient Position: Sitting; Cuff Location : Left Arm; Cuff Size: Standard 08-18-2019 14:45-0400 Heart rate 66 /min Millie Greer RN [facility] [employer] [facility] [place] [employer] Comment on above: Pattern: Regular 08-18-2019 14:45-0400 Systolic blood pressure 115 mm[Hg] Millie Greer RN [facility] [employer] [facility] [place] [employer] Comment on above: Patient Position: Sitting; Cuff Location : Left Arm; Cuff Size: Standard 05-15-2016 14:43-0500 Body height 162.56 cm Millie Greer RN [facility] [employer] [facility] 05-15-2016 14:43-0500 Body mass index (BMI) [Ratio] 21.15 kg/m2 Millie Greer RN [facility], [facility] [employer] [facility] [place] [facility] 05-15-2016 14:43-0500 Body surface area Derived from formula 1.59 m2 Millie Greer RN [facility] [employer] [facility] [place] [employer] 05-15-2016 14:43-0500 Body temperature 98.2 [degF] Millie Greer RN [employer] [facility] [employer] [facility], [facility] Comment on above: Method: Oral 05-15-2016 14:43-0500 Body weight 55.88 kg Millie Greer RN [employer] [facility].; [employer] 05-15-2016 14:43-0500 Diastolic blood pressure 78 mm[Hg] Millie Greer RN [employer] [facility] [employer] [facility] [place] [facility] Comment on above: Patient Position: Sitting; Cuff Location : Left Arm; Cuff Size: Standard 05-15-2016 14:43-0500 Heart rate 64 /min Millie Greer RN [employer] Comment on above: Pattern: Regular 05-15-2016 14:43-0500 Systolic blood pressure 123 mm[Hg] Millie Greer RN [employer] [facility] [employer] Comment on above: Patient Position: Sitting; Cuff Location : Left Arm; Cuff Size: Standard Encounters Encounter Date Encounter Type Care Provider Facility Start: 02-09-2025 End: 02-09-2025 Office outpatient visit 10 minutes ANNIE DORADO MD Work Phone: [facility] [employer]. Start: 09-22-2024 End: 09-22-2024 Nutrition therapy ANNIE DORADO MD Work Phone: [facility] [employer] [facility] Start: 09-18-2024 End: 09-18-2024 Office outpatient visit 10 minutes ANNIE DORADO MD Work Phone: [facility] [employer]. Start: 01-28-2024 End: 01-28-2024 Medication Refill/Order ANNIE DORADO MD Work Phone: [facility] [facility] Start: 12-12-2023 End: 12-12-2023 Office outpatient visit 10 minutes ANNIE DORADO MD Work Phone: [place] [email or web address] Start: 12-12-2023 Patient encounter procedure ANNIE DORADO MD Work Phone: [employer] Start: 11-21-2023 End: 11-21-2023 Office outpatient visit 15 minutes ANNIE DORADO MD Work Phone: [facility]. Start: 11-21-2023 Review ANNIE Perez Work Phone: [place] [employer]. Start: 11-30-2022 End: 11-30-2022 Patient encounter procedure ANNIE DORADO MD Work Phone: [employer] Start: 11-27-2022 End: 11-27-2022 Office outpatient visit 10 minutes ANNIE DORADO MD Work Phone: [employer] Start: 07-18-2021 End: 07-18-2021 Office outpatient visit 10 minutes ANNIE DORADO MD Work Phone: [employer] Start: 09-08-2020 End: 09-08-2020 Results Review ANNIE DORADO MD [email or web address] Start: 09-07-2020 End: 09-07-2020 Office outpatient visit 15 minutes ANNIE DORADO MD Work Phone: [employer] [facility] [employer] [email or web address] Start: 08-18-2019 End: 08-18-2019 Transitional care manage srvc 7 day discharge ANNIE DORADO MD Work Phone: [facility]. Start: 08-13-2019 End: 08-15-2019 Evaluation and management of inpatient ANNIE DORADO [facility] Start: 08-09-2018 End: 08-09-2018 Medication Refill/Order ANNIE DORADO MD Work Phone: [email or web address] Start: 05-15-2016 End: 05-15-2016 Office outpatient visit 25 minutes ANNIE DORADO MD Work Phone: [facility] [employer] Start: 05-15-2016 End: 05-15-2016 Preprocedural examination done ANNIE DORADO MD Work Phone: [facility] [facility]; [facility] [facility] Work Phone: Procedures Date Procedure Procedure Detail Performing Clinician Start: 12-12-2023 End: 12-12-2023 Dischrg meds reconciled w/current med list MIGUEL KYLE CLIENT [employer]UTIONS MANAGER-BC Work Phone: Start: 11-21-2023 End: 11-21-2023 Dischrg meds reconciled w/current med list [place] HORNE MD Work Phone: Start: 11-27-2022 End: 11-27-2022 Dischrg meds reconciled w/current med list ANNIE DORADO MD Work Phone: Start: 09-07-2020 End: 09-07-2020 Dischrg meds reconciled w/current med list Ekta KYLE MD Work Phone: Start: 09-07-2020 End: 09-07-2020 Urinary Incontinence Carmen YEAGER Comment on above: Abnormal. Start: 08-18-2019 End: 08-18-2019 Dischrg meds reconciled w/current med list ANNIE DORADO MD Work Phone: Appendectomy Carmen YEAGER Comment on above: Age 20. Natalie. Dental Extraction Carmen YEAGER Comment on above: Age 17. Prevnar 20 Millie Greer RN Comment on above: Refused. 12/12/2023 Varicella or Immuniz ation History Carmen YEAGER Comment on above: Had disease. Varicella or Immuniz ation History Millie Greer RN Comment on above: Had disease. Plan of Treatment Date Care Activity Detail Author Start: 09-18-2024 Assay of iron IRON (15970) S tart: 18-Sep-2024 10:33-04:00 Request [employer] [facility]. Start: 09-18-2024 Assay of thyroid stimulating hormone tsh TSH (78235) Start: 18-Sep-2024 10:33-04:00 Request [employer] [facility]. Start: 09-18-2024 25 hydroxy includes fractions if performed VITAMIN D, 25 HYDROXY (48206) Start: 18-Sep-2024 10:32-04:00 Request [employer] [facility]. Start: 09-18-2024 Comprehensive metabo lic panel CMP - COMPREHENSIVE METABOLIC PANEL (48370) Start: 18-Sep-2024 10:32-04:00 Request [employer] [facility]. Start: 09-18-2024 Blood count complete auto&auto difrntl wbc CBC, PLATELETS & AUT DIFF ([id number]) Start: 18-Sep-2024 10:32-04:00 Request [employer] [facility]. Start: 05-15-2016 Ecg routine ecg w/le ast 12 lds w/i&r EKG, COMPLETE (75132) Start: 15-May-2016 Intent [employer] [facility]. Immunizations Immunization Date Immunization Notes Care Provider Nancy curran 05-13-2016 influenza, injectabl e, quadrivalent, contains preservative ANNIE DORADO MD Work Phone: [employer]; [facility]. Comment on above: @ [facility] Retir ement Payers Date Payer Category Payer Unknown [id number] Unknown [id number] Unknown [facility] Social History Date Type Detail Facility Alcohol Use: Alcohol Use: ; N o Alcohol Use. [employer] [facility]. Marital status: Marital status: ; . [facility]; [facility] [employer] [facility] Most Recent Primary Occupation Most Recent Primary Occupation [facility]; [facility] [employer] [facility] Tobacco use: Tobacco use: ; N ever smoker. [facility] [employer] [facility] [employer] [facility] Female [facility]; [facility] Work Phone: Drinks wine [facility] [employer] [facility]; [facility] Work Phone: Never smoked tobacco [facility]; [facility] [employer] [facility] Work Phone: [facility] [employer] [facility]; [facility] Work Phone: Summary Purpose Family History Brother (s) Status:Active Comments:4. Dece ased. 1 murdered 1956. Father Status:Active Comments: d. 75. Heart Mother Status:Active Comments: d. 91. Sister (s) Status:Active Comments:1. Dece ased. CHF, DM, CAD Brother (s) Status:Active Comments:4. Dece ased. 1 murdered 1956. Father Status:Active Comments: d. 75. Heart Mother Status:Active Comments: d. 91. Sister (s) Status:Active Comments:1. Dece ased. CHF, DM, CAD Brother (s) Status:Active Comments:4. Dece ased. 1 murdered 1956. Father Status:Active Comments: d. 75. Heart Mother Status:Active Comments: d. 91. Sister (s) Status:Active Comments:1. Dece ased. CHF, DM, CAD Brother (s) Status:Active Comments:4. Dece ased. 1 murdered 1956. Father Status:Active Comments: d. 75. Heart Mother Status:Active Comments: d. 91. Sister (s) Status:Active Comments:1. Dece ased. CHF, DM, CAD Brother (s) Status:Active Comments:4. Dece ased. 1 murdered 1956. Father Status:Active Comments: d. 75. Heart Mother Status:Active Comments: d. 91. Sister (s) Status:Active Comments:1. Dece ased. CHF, DM, CAD Brother (s) Status:Active Comments:4. Dece ased. 1 murdered 1956. Father Status:Active Comments: d. 75. Heart Mother Status:Active Comments: d. 91. Sister (s) Status:Active Comments:1. Dece ased. CHF, DM, CAD Brother (s) Status:Active Comments:4. Dece ased. 1 murdered 1956. Father Status:Active Comments: d. 75. Heart Mother Status:Active Comments: d. 91. Sister (s) Status:Active Comments:1. Dece ased. CHF, DM, CAD Brother (s) Status:Active Comments:4. Dece ased. 1 murdered 1956. Father Status:Active Comments: d. 75. Heart Mother Status:Active Comments: d. 91. Sister (s) Status:Active Comments:1. Dece ased. CHF, DM, CAD Brother (s) Status:Active Comments:4. Dece ased. 1 murdered 1956. Father Status:Active Comments: d. 75. Heart Mother Status:Active Comments: d. 91. Sister (s) Status:Active Comments:1. Dece ased. CHF, DM, CAD Brother (s) Status:Active Comments:4. Dece ased. 1 murdered 1956. Father Status:Active Comments: d. 75. Heart Mother Status:Active Comments: d. 91. Sister (s) Status:Active Comments:1. Dece ased. CHF, DM, CAD Brother (s) Status:Active Comments:4. Dece ased. 1 murdered 1956. Father Status:Active Comments: d. 75. Heart Mother Status:Active Comments: d. 91. Sister (s) Status:Active Comments:1. Dece ased. CHF, DM, CAD Brother (s) Status:Active Comments:4. Dece ased. 1 murdered 1956. Father Status:Active Comments: d. 75. Heart Mother Status:Active Comments: d. 91. Sister (s) Status:Active Comments:1. Dece ased. CHF, DM, CAD Brother (s) Status:Active Comments:4. Dece ased. 1 murdered 1956. Father Status:Active Comments: d. 75. Heart Mother Status:Active Comments: d. 91. Sister (s) Status:Active Comments:1. Dece ased. CHF, DM, CAD Brother (s) Status:Active Comments:4. Dece ased. 1 murdered 1956. Father Status:Active Comments: d. 75. Heart Mother Status:Active Comments: d. 91. Sister (s) Status:Active Comments:1. Dece ased. CHF, DM, CAD Brother (s) Status:Active Comments:4. Dece ased. 1 murdered 1956. Father Status:Active Comments: d. 75. Heart Mother Status:Active Comments: d. 91. Sister (s) Status:Active Comments:1. Dece ased. CHF, DM, CAD Brother (s) Status:Active Comments:4. Dece ased. 1 murdered 1956. Father Status:Active Comments: d. 75. Heart Mother Status:Active Comments: d. 91. Sister (s) Status:Active Comments:1. Dece ased. CHF, DM, CAD Brother (s) Status:Active Comments:4. Dece ased. 1 murdered 1956. Father Status:Active Comments: d. 75. Heart Mother Status:Active Comments: d. 91. Sister (s) Status:Active Comments:1. Dece ased. CHF, DM, CAD Brother (s) Status:Active Comments:4. Dece ased. 1 murdered 1956. Father Status:Active Comments: d. 75. Heart Mother Status:Active Comments: d. 91. Sister (s) Status:Active Comments:1. Dece ased. CHF, DM, CAD Advance Directives No Advanced Directives Records Found Hospital Course Note [facility] DISCHARGE SUMMARY NAME ACCOUNT SEX AGE ADMIT DISCHARGE PT MED. RECORD# NUMBER DATE DATE TYPE ALICE KYLE [id number] F 74 08/13/19 08/15/19 1 [id number] ROOM: 302MO DATE OF : 1945 ATTENDING PHYSICIAN: Maggy Sharma FINAL DIAGNOSES: 1. 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 2. Carotid artery stenosis of less than 50%. 3. Hyperlipidemia. 4. Mitral valve prolapse. HISTORY OF PRESENT ILLNESS: This is a 74-year-old healthy female. She has not been seen by a doctor in many years. She takes herbal medications and nothing else. She felt tired. She woke up in the morning and had breakfast. She had some numbness and tingling to her left leg. When she tried to put weight on it, it gave out on her. She propped her legs up. The family eventually made her come to the Emergency Room. Initial work-up was negative. She had some sensory changes on the left side and slight weakness of the left foot. DIAGNOSTIC DATA: Carotid Doppler study revealed le (more content not included)... Additional Source Comments INFORMATION SOURCE (unrecogn ized section and content) DATE CREATED AUTHOR 08/28/2019 [facility] FOR RECORDS PERTAINING TO PATIENTS WHO ARE OR HAVE BEEN ENROLLED IN A CHEMICAL DEPENDENCY/SUBSTANCEABUSE PROGRAM, SOME INFORMATION MAY BE OMITTED. This clinical summary was aggregated from multiple sources. Caution should be exercised in using it in the provision of clinical care. This summary normalizes information from multiple sources, and as a consequence, information in this document may materially change the coding, format and clinical context of patient data. In addition, data may be omitted in some cases. CLINICAL DECISIONS SHOULD BE BASED ON THE PRIMARY CLINICAL RECORDS. [employer] provides no warranty or guarantee of the accuracy or completeness of information in this document.
--- NOTE | 2025-05-21 11:15 | STRESSREP ---
Stress Test Report Date: 05/21/2025 Procedure: Pharmacologic stress nuclear imaging study Indications: Chest pain Consent: Per the patient Procedure: The patient underwent pharmacologic (Regadenoson 0.4mg ) evaluation with a peak heart rate of 76 beats per minute (54%predicted maximal heart rate) and a peak blood pressure of 158/92 mmHg. The baseline ECG demonstrated sinus rhythm with nonspecific T wave changes. The peak pharmacologic ECG did not show any ischemic changes. Rare PVCs noted. There was no complaint of chest discomfort during pharmacologic infusion or recovery. The patient was injected with 10.9 millicuries of technetium 99m Cardiolite and subsequently rest SPECT Cardiolite nuclear imaging was obtained in the horizontal long, vertical long, and short axis views. The patient underwent pharmacologic (Regadenoson) evaluation. The patient was injected with 33.4 millicuries of technetium 99m Cardiolite and subsequently stress SPECT Cardiolite nuclear imaging was obtained in the horizontal long, vertical long, and short axis views. A gated Cardiolite study at peak stress was obtained. The examination was stopped secondary to completion of protocol. Rest and stress SPECT Cardiolite nuclear imaging status post realignment, normalization, and attenuation correction demonstrate no fixed or reversible perfusion defects. There is end systolic thickening and brightening. The gated Cardiolite study demonstrates myocardial thickening and inward wall motion. The reported LVEF is 82%. Impression: 1. Pharmacologic (Regadenoson) evaluation 2. Peak pharmacologic ECG with no ischemic changes. 3. Rare PVCs noted. 5. Rest and stress SPECT Cardiolite nuclear imaging demonstrate relative uniform tracer uptake and myocardial perfusion appearing within normal limits. 6. The gated Cardiolite study reports an LVEF of 82%. This note was generated with [employer] software. It may contain incorrect words, spelling, and punctuation that were not noted in checking the note before signing.
== END | disposition home or self-care (01) ==
LOC: CVS 07:20
PROVIDERS: PCP Family Medicine; Referring Provider Internal Medicine Cardiovascular Disease; Visit Provider Internal Medicine Cardiovascular Disease
DX: R42 Dizziness and giddiness (principal); R55 Syncope and collapse; I20.9 Angina pectoris, unspecified; I77.9 Disorder of arteries and arterioles, unspecified; I10 Essential (primary) hypertension; E78.5 Hyperlipidemia, unspecified; R07.9 Chest pain, unspecified; R53.83 Other fatigue
CPT/HCPCS: 78452; 93017; 93225; 93226; 93306; 93880; A9500; J2785